=== PATIENT | male | born 1965 | race Caucasian/White ===

== ENCOUNTER 2021-07-21 19:42 | Inpatient (IN) | payer MEDICARE, OTHER ==
[2021-07-21] MEDS ORDERED: SODIUM CHLORIDE 0.9% 1,000 ML IV STA (20:30)
[2021-07-21] MEDS ORDERED: LORazepam 2 MG/ML INJ IV STA (20:31)
--- NOTE | 2021-07-21 20:38 | ED ---
General Adult HPI - General Chief complaint: Extremity Injury, Lower Stated complaint: Left ankle injury Time Seen by Provider: 07/21/21 20:12 Source: patient, EMS, RN notes reviewed Mode of arrival: EMS - History of Present Illness Initial comments: This is a 55-year-old male who was transferred from [facility] after having multiple falls and sustaining a nondisplaced distal fibular fracture on the left. Patient lives in a jail and according to the car etaker patient fell from standing patient had a negative CT of the brain and head at [facility]. Patient also had multiple other clinical x-rays which were negative. Patient was positive for COVID-19 as well as a urinary tract infection. Patient is able to give limited history due to altered mental status. However he denies any chest pain or shortness of breath. His only complaint is pain in the left lower leg area near the fracture. He denies any abdominal pain. No vomiting. No urination. No head or neck pain. No change in vision or hearing. Review of systems are otherwise negative after complete review of all systems. - Related Data Home Medications Medication Instructions Recorded Confirmed Atorvastatin [Lipitor] 20 mg PO HS 07/21/21 07/21/21 Benztropine Mesylate 1 mg PO HS 07/21/21 07/21/21 Divalproex ER [Depakote ER] 1,500 mg PO HS 07/21/21 07/21/21 Divalproex ER [Depakote ER] 250 mg PO HS 07/21/21 07/21/21 LORazepam [Ativan] 1 mg PO TID 07/21/21 07/21/21 OLANZapine [ZyPREXA] 20 mg PO HS 07/21/21 07/21/21 haloperidoL [Haldol] 5 mg PO DAILY 07/21/21 07/21/21 haloperidoL [Haldol] 10 mg PO HS 07/21/21 07/21/21 lamoTRIgine [LaMICtal] 100 mg PO HS 07/21/21 07/21/21 lamoTRIgine [LaMICtal] 200 mg PO DAILY 07/21/21 07/21/21 Allergies Allergy/AdvReac Type Severity Reaction Status Date / Time No Known Allergies Allergy Verified 07/21/21 20:21 Review of Systems ROS Statement: Those systems with pertinent positive or pertinent negative responses have been documented in the HPI. ROS Other: All systems not noted in ROS Statement are negative. General Exam - General Exam Comments Initial Comments: 55-year-old male in mild distress. Patient does not appear to be ill or toxic. Able to provide a limited history. Alert and oriented 2, appears to be disoriented a bit to time and situation. General appearance: alert, in no apparent distress Head exam: Present: atraumatic, normocephalic, normal inspection Eye exam: Present: normal appearance, PERRL, EOMI. Absent: scleral icterus, conjunctival injection, periorbital swelling ENT exam: Present: normal exam, normal oropharynx, mucous membranes moist, TM's normal bilaterally, normal external ear exam Neck exam: Present: normal inspection, full ROM. Absent: tenderness, meningismus, lymphadenopathy Respiratory exam: Present: normal lung sounds bilaterally. Absent: respiratory distress, wheezes, rales, rhonchi, stridor Cardiovascular Exam: Present: regular rate, normal rhythm, normal heart sounds. Absent: systolic murmur, diastolic murmur, rubs, gallop, clicks GI/Abdominal exam: Present: soft, normal bowel sounds. Absent: distended, tenderness, guarding, rebound, rigid Extremities exam: Present: full ROM, normal capillary refill, other (Splint in place, left leg, short leg OCL neurovascular status intact. Capillary refill less than 2 seconds.). Absent: tenderness, pedal edema, joint swelling, calf tenderness Back exam: Present: normal inspection, full ROM. Absent: tenderness Neurological exam: Present: alert, CN II-XII intact, other (Patient does not appear to have any focal neurologic deficits. Alert and oriented 2) Psychiatric exam: Present: normal affect, normal mood Skin exam: Present: warm, dry, intact, normal color. Absent: rash Course Vital Signs 07/21/21 07/21/21 20:12 22:07 Temperature 98.1 F Pulse Rate 80 104 H Respiratory 16 18 Rate Blood Pressure 147/97 O2 Sat by Pulse 95 96 Oximetry EKG Findings - EKG Comments: EKG Findings:: EKG done at 2217 and read by the ED attending physician reveals sinus tachycardia with a rate of 104. Nonspecific ST T wave changes. No comparison study. No evidence of ST elevation. Left axis deviation. Normal intervals. No comparison study. Medical Decision Making - Medical Decision Making Patient presents from [facility], COVID-19 positive, multiple falls, change in mental status, negative CT of the head and neck. Fracture of the distal left fibula. Splint in place. The case was discussed in detail with ED attending physician. Presentation, findings, treatment plan discussed in detail. Patient to be admitted for rehabilitation placement. Attestation, case discussed in detail with the ER physician as well as the admitting physician, Dr. Pierson. Consultations for psychiatry and orthopedics will be made. Patient admitted to telemetry Supervising physician is Dr. Ward. - Lab Data Result diagrams: 07/21/21 20:46 07/21/21 20:46 Lab Results 07/21/21 07/21/21 07/21/21 Range/Units 20:46 20:46 20:46 WBC 6.8 (3.8-10.6) k/uL RBC 5.10 (4.30-5.90) m/uL Hgb 11.0 L (13.0-17.5) gm/dL Hct 34.8 L (39.0-53.0) % MCV 68.2 L (80.0-100.0) fL MCH 21.5 L (25.0-35.0) pg MCHC 31.5 (31.0-37.0) g/dL RDW 16.5 H (11.5-15.5) % Plt Count 308 (150-450) k/uL MPV 6.8 Neutrophils % 70 % Lymphocytes % 15 % Monocytes % 13 % Eosinophils % 1 % Basophils % 0 % Neutrophils # 4.7 (1.3-7.7) k/uL Lymphocytes # 1.0 (1.0-4.8) k/uL Monocytes # 0.9 (0-1.0) k/uL Eosinophils # 0.1 (0-0.7) k/uL Basophils # 0.0 (0-0.2) k/uL Hypochromasia Slight Poikilocytosis Slight Anisocytosis Slight Microcytosis Marked Sodium 139 (137-145) mmol/L Potassium 4.4 (3.5-5.1) mmol/L Chloride 109 H (98-107) mmol/L Carbon Dioxide 23 (22-30) mmol/L Anion Gap 7 mmol/L BUN 12 (9-20) mg/dL Creatinine 2.22 H (0.66-1.25) mg/dL Est GFR (CKD-EPI)AfAm 37 (>60 ml/min/1.73 sqM) Est GFR (CKD-EPI)NonAf 32 (>60 ml/min/1.73 sqM) Glucose 199 H (74-99) mg/dL Calcium 9.4 (8.4-10.2) mg/dL Phosphorus 3.6 (2.5-4.5) mg/dL Magnesium 2.1 (1.6-2.3) mg/dL Total Bilirubin 0.8 (0.2-1.3) mg/dL AST 42 (17-59) U/L ALT 14 (4-49) U/L Alkaline Phosphatase 100 (38-126) U/L Troponin I <0.012 (0.000-0.034) ng/mL Total Protein 7.0 (6.3-8.2) g/dL Albumin 3.8 (3.5-5.0) g/dL Disposition Clinical Impression: COVID-19, Altered mental status, Closed fracture of left distal fibula, Urinary tract infection, Chronic renal failure Disposition: ADMITTED IP TO THIS HOSP
[2021-07-21 20:57] LABS: Anisocytosis Slight; Basophils % (A) 0 %; Eosinophils # (A) 0.1 k/uL (0-0.7); Eosinophils % (A) 1 %; HCT 34.8 % (39.0-53.0); Hypochromasia Slight; Lymphocytes % (A) 15 %; MCH 21.5 pg (25.0-35.0); MCHC 31.5 g/dL (31.0-37.0); MCV 68.2 fL (80.0-100.0); Mean Platelet Volume 6.8; Microcytosis Marked; Monocytes # (A) 0.9 k/uL (0-1.0); Monocytes % (A) 13 %; Neutrophils # (A) 4.7 k/uL (1.3-7.7); Neutrophils % (A) 70 %; Platelet Count 308 k/uL (150-450); Poikilocytosis Slight; RDW 16.5 % (11.5-15.5); WBC 6.8 k/uL (3.8-10.6)
[2021-07-21 21:13] LABS: Albumin 3.8 g/dL (3.5-5.0); Calcium 9.4 mg/dL (8.4-10.2); Magnesium 2.1 mg/dL (1.6-2.3); Phosphorus 3.6 mg/dL (2.5-4.5); Potassium 4.4 mmol/L (3.5-5.1); Total Bilirubin 0.8 mg/dL (0.2-1.3)
[2021-07-21] MEDS ORDERED: HALOPERIDOL LACTATE 5 MG/ML 1 ML VIAL IM STA (21:18)
[2021-07-21] MEDS ORDERED: NALOXONE 0.4 MG/ML 1 ML VIAL IV PRN (21:45)
[2021-07-21] MEDS ORDERED: ONDANSETRON 4 MG/2 ML VIAL IVP PRN (21:45)
[2021-07-21] MEDS: SODIUM CHLORIDE 0.9% 1,000 ML IV SCH (22:31)
[2021-07-21] MEDS: ENOXAPARIN 40 MG/0.4 ML SYRINGE SQ SCH (22:31)
[2021-07-22 00:14] LABS: Appearance,Urine Clear (Clear); Bacteria,Urine Rare /hpf; Bilirubin,Urine Negative (Negative); Blood,Urine Trace (Negative); Color,Urine Light Yellow; Glucose,Urine (UA) Negative (Negative); Ketones,Urine Negative (Negative); Leukocyte Esterase,Urine Moderate (Negative); Nitrite,Urine Negative (Negative); PH, Urine 6.5 (5.0-8.0); Protein,Urine Negative (Negative); RBC,Urine 2 /hpf (0-5); Specific Gravity,Urine 1.003 (1.001-1.035); Urobilinogen,Urine <2.0 mg/dL (<2.0); WBC,Urine 7 /hpf (0-5)
[2021-07-22] MEDS: LORazepam 2 MG/ML INJ IV PRN (03:21)
[2021-07-22] MEDS: MORPHINE SULFATE 4 MG/ML SYRINGE IV PRN ×2 (06:07→15:49)
[2021-07-22 07:27] LABS: Basophils % (A) 0 %; Eosinophils % (A) 0 %; HCT 34.4 % (39.0-53.0); HGB 10.7 gm/dL (13.0-17.5); Hypochromasia Moderate; Lymphocytes # (A) 1.1 k/uL (1.0-4.8); Lymphocytes % (A) 18 %; MCH 21.8 pg (25.0-35.0); MCV 70.1 fL (80.0-100.0); Mean Platelet Volume 7.3; Microcytosis Moderate; Monocytes # (A) 0.9 k/uL (0-1.0); Monocytes % (A) 16 %; Neutrophils # (A) 3.8 k/uL (1.3-7.7); Neutrophils % (A) 64 %; Platelet Count 239 k/uL (150-450); RBC 4.91 m/uL (4.30-5.90); WBC 5.9 k/uL (3.8-10.6)
[2021-07-22 07:44] LABS: Albumin 3.5 g/dL (3.5-5.0); Calcium 9.4 mg/dL (8.4-10.2); Magnesium 2.2 mg/dL (1.6-2.3); Phosphorus 3.7 mg/dL (2.5-4.5); Potassium 4.4 mmol/L (3.5-5.1); Total Bilirubin 0.7 mg/dL (0.2-1.3); Total Protein 6.5 g/dL (6.3-8.2)
[2021-07-22] MEDS: PANTOPRAZOLE 40 MG/10 ML VIAL IV SCH (08:30)
[2021-07-22] MEDS: ENOXAPARIN 40 MG/0.4 ML SYRINGE SQ SCH (08:30)
--- NOTE | 2021-07-22 08:35 | P.CNOR ---
History of Present Illness - [facility] Consult date: 07/22/21 Consult reason: fracture (Left distal fibula fracture) History of present illness: The patient is a 55 y/o male who present to the ER at [facility] yesterday from [facility]. He sustained multiple falls in his fci and was found to have a possible left fibula fracture. He was placed in a s plint. The patient is confused and unable to tell us any history at this time. Today, the patient is sleeping upon my exam. No complaints of left ankle pain at this time. He has not been out of bed yet. The patient was positive for COVID in [place] according to the ER. COVID PCR upon admission was negative. Review of Systems ROS unobtainable: due to mental status Past Medical History Past Medical History: Unable to Obtain Additional Past Medical History / Comment(s): Guardian states she is unable to give me his medical history at this time. History of Any Multi-Drug Resistant Organisms: None Reported Past Surgical History: Unable to Obtain Additional Past Surgical History / Comment(s): Guardian states she is unable to give me his medical history at this time. Past Anesthesia/Blood Transfusion Reactions: No Reported Reaction Additional Psychological History / Comment(s): Pt lives alone in an apartment and relies on a caregiver. He is legally incapacitated according to his guardian. Smoking Status: Current every day smoker Past Drug Use History: None Reported Additional Drug Use History / Comment(s): Unable to obtain past drug use history. Medications and Allergies Home Medications Medication Instructions Recorded Confirmed Type Atorvastatin [Lipitor] 20 mg PO HS 07/21/21 07/21/21 History Benztropine Mesylate 1 mg PO HS 07/21/21 07/21/21 History Divalproex ER [Depakote ER] 1,500 mg PO HS 07/21/21 07/21/21 History Divalproex ER [Depakote ER] 250 mg PO HS 07/21/21 07/21/21 History LORazepam [Ativan] 1 mg PO TID 07/21/21 07/21/21 History OLANZapine [ZyPREXA] 20 mg PO HS 07/21/21 07/21/21 History haloperidoL [Haldol] 5 mg PO DAILY 07/21/21 07/21/21 History haloperidoL [Haldol] 10 mg PO HS 07/21/21 07/21/21 History lamoTRIgine [LaMICtal] 100 mg PO HS 07/21/21 07/21/21 History lamoTRIgine [LaMICtal] 200 mg PO DAILY 07/21/21 07/21/21 History Allergies Allergy/AdvReac Type Severity Reaction Status Date / Time No Known Allergies Allergy Verified 07/21/21 20:21 Physical Examination The patient is a 55 y/o male in no acute distress. He is very sleepy at this time and is able to arouse but falls back to sleep easily. Exam of the left ankle reveals a splint that was removed. There is mild to moderate swelling to the ankle. No open wounds are present. Upon palpation to the lateral ankle, the patient did grimace when the distal fibula was palpated. When the area was palpated again, the patient did not react. No pain over the lateral ligaments. No pain to the medial aspect of the ankle. He is unable to cooperate to test active range of motion. No pain on passive ROM of the ankle. Circulatory status is intact, pedal pulse 2+. Results - Labs Labs: Abnormal Lab Results - Last 24 Hours (Table) 07/21/21 07/21/21 07/21/21 Range/Units 20:46 20:46 23:53 Hgb 11.0 L (13.0-17.5) gm/dL Hct 34.8 L (39.0-53.0) % MCV 68.2 L (80.0-100.0) fL MCH 21.5 L (25.0-35.0) pg RDW 16.5 H (11.5-15.5) % Chloride 109 H (98-107) mmol/L Creatinine 2.22 H (0.66-1.25) mg/dL Glucose 199 H (74-99) mg/dL Urine Blood Trace H (Negative) Ur Leukocyte Esterase Moderate H (Negative) Urine WBC 7 H (0-5) /hpf Urine Bacteria Rare H (None) /hpf 07/22/21 07/22/21 Range/Units 07:02 07:02 Hgb 10.7 L (13.0-17.5) gm/dL Hct 34.4 L (39.0-53.0) % MCV 70.1 L (80.0-100.0) fL MCH 21.8 L (25.0-35.0) pg RDW 16.0 H (11.5-15.5) % Chloride 110 H (98-107) mmol/L Creatinine 2.40 H (0.66-1.25) mg/dL Glucose 149 H (74-99) mg/dL Urine Blood (Negative) Ur Leukocyte Esterase (Negative) Urine WBC (0-5) /hpf Urine Bacteria (None) /hpf H & H 07/21/21 07/22/21 Range/Units 20:46 07:02 Hgb 11.0 L 10.7 L (13.0-17.5) gm/dL Hct 34.8 L 34.4 L (39.0-53.0) % Result Diagrams: 07/22/21 07:02 07/22/21 07:02 - Diagnostic results Ankle/Foot x-ray: image reviewed (X-rays of the left ankle obtained today reveal no acute fractures seen. Ankle mortise is intact.) Assessment and Plan (1) Altered mental status Current Visit: Yes Status: Acute Code(s): R41.82 - ALTERED MENTAL STATUS, UNSPECIFIED SNOMED Code(s): 193779821 (2) Closed fracture of left distal fibula Current Visit: Yes Status: Acute Code(s): S82.832A - OTH FRACTURE OF UPPER AND LOWER END OF LEFT FIBULA, INIT SNOMED Code(s): 208848117 Plan: The clinical and x-ray findings were discussed with Dr. Mclean and nursing staff. We will obtain a CAM boot today. He may remove the boot for bathing only at this time. Weightbearing as tolerated with boot on. Elevate and ice ankle. The patient may follow up with either us or an orthopedic physician closer to home. We will sign off at this time.
--- NOTE | 2021-07-22 09:15 | XR ---
EXAMINATION TYPE: XR ankle limited LT DATE OF EXAM: 07/22/2021 COMPARISON: None available INDICATION: Left fibular fracture TECHNIQUE: 2 of the left ankle FINDINGS: The left ankle is seen in a fiber glass cast obscuring fine bony details. No definite acute fracture line identified. Inferior calcaneal spur. Grossly unremarkable ankle mortise with a smooth talar dome . IMPRESSION: No definite acute fracture line identified by the provided images.
--- NOTE | 2021-07-22 11:37 | XR ---
EXAMINATION TYPE: XR chest 1V portable DATE OF EXAM: 07/22/2021 COMPARISON: None available HISTORY: SOB TECHNIQUE: Single frontal view of the chest is obtained. FINDINGS: Congested bilateral pulmonary vasculature with prominent interstitial lung markings and scattered are as of increased lung density/pulmonary infiltration, most evident in the midlung zones and more on th e right side. The overall picture could be related to pulmonary edema. Associated pulmonary infection cannot be exc luded. Increased cardiac transverse diameter, please correlate with echocardiographic results. Small left-sided pleural effusion. IMPRESSION: Findings are suggestive of acute pulmonary edema. Associated infection cannot be excluded, please cor relate clinically.
[2021-07-22] MEDS ORDERED: IPRATROPIUM-ALBUTEROL 3 ML NEB INHALATION PRN (12:20)
[2021-07-22] MEDS: IPRATROPIUM-ALBUTEROL 3 ML NEB INHALATION SCH ×2 (13:18→19:57)
--- NOTE | 2021-07-22 13:34 | HP ---
HISTORY AND PHYSICAL DATE OF SERVICE: 07/22/2021 CHIEF COMPLAINT: Left ankle injury. HISTORY OF PRESENT ILLNESS: This 55-year-old gentleman with a past medical history of hyperlipidemia and apparent psychiatric problems, living in an assisted-living facility, had a fall and suffered a left fibular fracture. The patient also was found to have UTI. Patient had some change in mental status. Patient was sent to [facility] for further evaluation. COVID is positive. The patient is unable to give a coherent history. Most of the history is taken from my discussion with staff and review of the chart. The patient has some sleep apnea and noisy breathing. I ordered a chest x-ray done today, which was reviewed. Orthopedic Surgery is following the patient closely. Chest x-ray showed some evidence of increased bronchovascular markings and some fluid overload. PAST MEDICAL HISTORY: Reviewed. Psychiatric problems. MEDICATIONS: Medications are also reviewed and include Haldol, Depakote Lipitor. Doses are reviewed. ALLERGIES: NONE. Family history, social history, review of systems could not be taken because of change in mental status. PHYSICAL EXAMINATION: Pulse is 72, blood pressure 120/70, respirations 17. HEENT: Conjunctivae normal. Oral mucosa moist. NECK: No jugular venous distention. No carotid bruit. CARDIOVASCULAR: S1, S2 muffled. A few scattered rhonchi and crackles. ABDOMEN: Soft, obese. LEGS: Status post left fibular fracture. Nervous system could not be examined completely. Generally weak. SKIN: No ulcer, rash, bleeding. JOINTS: No active deforming arthropathy. LABS: WBC 5.2, hemoglobin 10.7. ASSESSMENT: 1. Fall and left fibular fracture. 2. Acute urinary tract infection with sepsis. 3. COVID-19 positive, elsewhere negative currently. 4. Congestive heart failure. 5. Anemia. RECOMMENDATIONS AND DISCUSSION: In this 55-year-old gentleman who presented with multiple complex medical issues, at this time I recommend to continue current medications. Will resume the home medications and hold the psychiatric medications. The patient is drowsy. Otherwise, DVT prophylaxis. I would also recommend a 2D echo and full cardiac workup as well. Overall prognosis is extremely guarded because of the multiple complex medical issues. Further recommendations to follow. MMODL / IJN: [id number] /
[2021-07-22] MEDS ORDERED: LORazepam 1 MG TAB PO PRN (14:02)
--- NOTE | 2021-07-22 14:03 | P.CN ---
Psychiatric Consult - . Consult date: 07/22/21 Consult:: 07/22/21 14:02 IDENTIFYING DATA: This patient is a single, unemployed, 55-year-old male with a significant history of psychiatric illness presented to the hospital for multiple falls and altered mental status. HISTORY OF PRESENT ILLNESS: The patient presented to the hospital from [facility] after having multiple falls and sustaining a nondisplaced distal fibular fraccture on the left. Psychiatry has been consulted for evaluation and management of altered mental status. At this time, the patient is unable to provide any significant history to this provider. The patient is quite somnolent and is unable to answer any questions appropriately. He is nonspontaneous and very minimal in his repsonses. This provider left a HIPAA compliacnt voicemail with his guardian for further history. PAST PSYCHIATRIC HISTORY: Patient is currently on a regimen of multiple psychiatric medications including Haldol, Zyprexa, Lamictal, Depakote, and Ativan. PAST MEDICAL HISTORY: Past Medical History: Unable to Obtain Additional Past Medical History / Comment(s): Guardian states she is unable to give me his medical history at this time. History of Any Multi-Drug Resistant Organisms: None Reported Past Surgical History: Unable to Obtain Additional Past Surgical History / Comment(s): Guardian states she is unable to give me his medical history at this time. Past Anesthesia/Blood Transfusion Reactions: No Reported Reaction Additional Psychological History / Comment(s): Pt lives alone in an apartment and relies on a caregiver. He is legally incapacitated according to his guardian. Smoking Status: Current every day smoker Past Drug Use History: None Reported Additional Drug Use History / Comment(s): Unable to obtain past drug use his tory. ALLERGIES: NO KNOWN DRUG ALLERGIES CHEMICAL DEPENDENCY HISTORY: Unable to assess FAMILY PSYCHIATRIC/SUBSTANCE USE HISTORY: Unable to assess SOCIAL HISTORY: Patient has a public guardian. Patient lives in a intermediate. Unable to determine any other patient history. MENTAL STATUS EXAM: General Appearance: Patient appears to be older than stated age, is morbidly obese, with poor hygiene and grooming, and is appearing quite somnolent. Behavior: Patient is currently lying down in bed without any agitated behavior. Somnolent and difficult to arouse. Speech: Nonspontaneous, monotone, 1 word responses if any. Mood/Affect: Mood cannot be assessed. Affect is somnolent. Suicidality/Homicidality: Unable to assess Perceptions: Unable to assess Though content/process: Unable to assess Memory and concentration: Unable to assess Judgment and insight: Unable to assess IMPRESSIONS: Altered mental status, etiology unknown - likely multifactorial including polyp harmacy, urinary tract infection, exacerbation of chronic mental illness PLAN: -Continue your medical management -Patient DOES NOT have decision making capacity at this time and is unable to reason through and communicate/appreciate the risks, benefits and alternatives to treatment. -Delirium precautions recommended with patient including - avoiding use of narcotics and [employer] sedatives, limit anticholinergic medications when possible, frequent re-orientation, minimize use of restraints, open window shades during the day and close them at night -Would recommend the following medication changes/additions: We will discontinue the patient's morning Haldol due to concerns for oversedation. Continue Depakote 1750 mg by mouth at bedtime Continue Haldol 10 mg by mouth at bedtime Continue Lamictal 200 mg by mouth every morning and 100 mg by mouth daily at bedtime Continue Zyprexa 20 mg by mouth at bedtime We will change the patient's scheduled Ativan to 1 mg by mouth 3 times a day when necessary for agitation/anxiety -Will order TSH, B12, folate. Agree with Depakote and Lamictal level. -Will continue to follow along. This provider left a HIPAA compliant voicemail with his guardian's office to obtain more information. 07/22/21 14:03
[2021-07-22] MEDS: FUROSEMIDE 10 MG/ML 4 ML VIAL IV SCH ×2 (14:20→22:13)
[2021-07-22] MEDS ORDERED: LORazepam 1 MG TAB PO SCH (16:00)
--- NOTE | 2021-07-22 16:35 | XR ---
RESULT: HISTORY: fracture TECHNIQUE: 2 views of the left tibia and fibula were obtained. COMPARISON: Same-day. FINDINGS: There is demonstration of minimally displaced lateral malleolus fracture. No evidence of proximal tib ia fibular fractures. Interval removal of previous overlying splint. IMPRESSION: Lateral malleolus fracture.
[2021-07-22] MEDS: ATORVASTATIN 20 MG TAB PO SCH (20:59)
[2021-07-22] MEDS: DIVALPROEX ER 500 MG TAB.ER.24H PO SCH (20:59)
[2021-07-22] MEDS: BENZTROPINE MESYLATE 1 MG TAB PO SCH (21:00)
[2021-07-22] MEDS: DIVALPROEX ER 250 MG TAB.ER.24H PO SCH (21:00)
[2021-07-22] MEDS ORDERED: lamoTRIgine 100 MG TAB PO SCH (21:00)
[2021-07-22] MEDS: haloperidoL 5 MG TAB PO SCH (21:00)
[2021-07-22] MEDS: OLANZapine 10 MG TAB PO SCH (21:00)
[2021-07-22] MEDS: SODIUM CHLORIDE 0.9% 1,000 ML IV SCH (21:06)
[2021-07-23] MEDS: MORPHINE SULFATE 4 MG/ML SYRINGE IV PRN (03:06)
--- NOTE | 2021-07-23 07:03 | ECHOF ---
Referral Reason:chf MEASUREMENTS -------- HEIGHT: 172.7 cm WEIGHT: 122.5 kg BP: 150/88 RVIDd: 2.9 cm (< 3.3) IVSd: 1.5 cm (0.6 - 1.1) LVIDd: 4.3 cm (3.9 - 5.3) LVPWd: 1.4 cm (0.6 - 1.1) IVSs: 2.1 cm LVIDs: 3.0 cm LVPWs: 1.7 cm LA Diam: 3.5 cm (2.7 - 3.8) Ao Diam: 4.1 cm (2.0 - 3.7) AV Cusp: 2.7 cm (1.5 - 2.6) MV EXCURSION: 15.618 mm (> 18.000) MV EF SLOPE: 65 mm/s (70 - 150) EPSS: 1.3 cm MV E Timothy: 0.56 m/s MV DecT: 151 ms MV A Timothy: 0.91 m/s MV E/A Ratio: 0.62 FINDINGS -------- Sinus rhythm. This was a technically difficult study with suboptimal views. The left ventricular size is normal. There is moderate concentric left ventricular hypertrophy. O verall left ventricular systolic function is normal with, an EF between 55 - 60 %. The right ventricle is normal in size. The left atrium is normal in size. The right atrial size is normal. The aortic valve is trileaflet, and appears structurally normal. No aortic stenosis or regurgitation. The mitral valve is normal. No mitral regurgitation. The tricuspid valve appears structurally normal. The pulmonic valve was not well visualized. The aortic root is mildy dilated. IVC Not well visulized. There is no pericardial effusion. CONCLUSIONS -------- 1. There is moderate concentric left ventricular hypertrophy. 2. Overall left ventricular systolic function is normal with, an EF between 55 - 60 %. 3. The aortic valve is trileaflet, and appears structurally normal. No aortic stenosis or regurgitati on. 4. The mitral valve is normal. 5. The aortic root is mildy dilated. CONTRACTS OFFICER: Karyn Goss [facility]
[2021-07-23] MEDS: IPRATROPIUM-ALBUTEROL 3 ML NEB INHALATION SCH ×3 (08:44→20:30)
[2021-07-23] MEDS ORDERED: lamoTRIgine 100 MG TAB PO SCH (09:00)
[2021-07-23] MEDS ORDERED: haloperidoL 5 MG TAB PO SCH (09:00)
[2021-07-23] MEDS: PANTOPRAZOLE 40 MG/10 ML VIAL IV SCH (09:03)
[2021-07-23] MEDS: FUROSEMIDE 10 MG/ML 4 ML VIAL IV SCH ×2 (09:03→20:44)
[2021-07-23 09:16] LABS: HGB 11.6 g/dL (13.0-17.0); MCH 21.1 pg (27.0-32.0); MCHC 31.4 g/dL (32.0-37.0); MCV 67.4 fL (80.0-97.0); Mean Platelet Volume 9.8 fL (9.5-12.2); NRBC Per 100 WBC 0.2 /100 WBCS (0.0-0.0); Platelet Count 281 X 10*3/uL (140-440); RBC 5.49 X 10*6/uL (4.40-5.60); RDW 16.8 % (11.5-14.5); WBC 9.28 X 10*3/uL (4.50-10.00)
[2021-07-23 09:18] LABS: African American GFR (CKD) 30.6 (60.0-200.0); Albumin 4.1 g/dL (3.8-4.9); Albumin/Globulin Ratio 1.41 (1.60-3.17); Anion Gap 15.8 mmol/L (10.00-18.00); BUN/Creat Ratio 6.58 Ratio (12.00-20.00); Blood Urea Nitrogen 17.1 mg/dL (9.0-27.0); Calcium 9.7 mg/dL (8.7-10.3); Carbon Dioxide 26.2 mmol/L (20.0-27.5); Globulin 2.9 g/dL (1.6-3.3); Non-African American GFR(CKD) 26.4 (60.0-200.0); Total Bilirubin 0.6 mg/dL (0.30-1.20)
[2021-07-23] MEDS: ENOXAPARIN 40 MG/0.4 ML SYRINGE SQ SCH (09:38)
[2021-07-23 10:43] LABS: Basophils # (A) 0.03 X 10*3/uL (0.00-0.10); Basophils % (A) 0.3 %; Eosinophils # (A) 0.01 X 10*3/uL (0.04-0.35); Eosinophils % (A) 0.1 %; Immature Grans, Automated 0.8 %; Lymphocytes % (A) 15.1 %; Monocytes # (A) 1.95 X 10*3/uL (0.20-1.00); Neutrophils # (A) 5.82 X 10*3/uL (1.80-7.70); Neutrophils % (A) 62.7 %; Target Cells 2+
[2021-07-23 12:35] LABS: Coronavirus SARS CoV-2 Not Detected (Not Detected)
--- NOTE | 2021-07-23 13:29 | P.PN ---
Progress Note - Text Progress Note Date: 07/23/21 Interval History: Patient was seen resting in bed and was directable and agreeable to speak with hand sign writer in his room. Collateral information was provided by Yuniel Mcnamara who is the patient's caregiver. The patient's caregiver reports that at baseline, the patient is alert and oriented in all spheres. He does have a significant history of bipolar disorder however has been well controlled with his medications. Currently, the patient is alert however is not oriented to place or time. He is currently not reporting any suicidal or homicidal ideation, intention, and/or plan. He is not reporting any auditory or visual hallucinations at this time. He denies any paranoia or other delusions. The patient appears to be pleasantly confused at this time however is calm and cooperative and follows directions. He has been adherent with his medications and is not endorsing any significant side effect this time. Mental Status Exam: General Appearance: Patient appears to be stated age is alert, directable, and cooperative. Behavior: Patient is calmly seated without any agitated behavior. Speech: Patient's speech is fluent and nonpressured. Mood/Affect: Mood is "a little tired." Affect is congruent and a little somnolent Suicidality/Homicidality: Patient denies having any suicidal or homicidal ideation intent or plan. Perceptions: Patient denies any visual hallucinations and denies any auditory hallucinations Though content/process: There is no evidence of any delusional thought content and thought process is linear and goal-directed. Memory and concentration: Patient is alert and oriented to self only. Judgment and insight: Improving mildly Vital Signs Temp 99.1 F 07/23/21 08:00 Pulse 100 07/23/21 08:55 Resp 18 07/23/21 08:55 BP 164/107 07/23/21 08:00 Pulse Ox 94 L 07/23/21 08:45 Intake & Output 07/22/21 07/23/21 07/23/21 18:59 06:59 18:59 Output Total 4300 3400 Balance -4300 -3400 Output: Urine 4300 3400 Uretheral (Mccracken) 1800 Other: Voiding Method Indwelling Catheter Indwelling Catheter Indwelling Catheter Laboratory Results - Last 24 Hours 07/22/21 07/22/21 07/22/21 12:30 12:30 13:01 WBC RBC Hgb Hct MCV MCH MCHC RDW Plt Count Plt Count Comment MPV Immature Gran % (Auto) Absolute Nucleated RBC Neutrophils % Lymphocytes % Monocytes % Eosinophils % Basophils % Immature Gran # Neutrophils # Lymphocytes # Monocytes # Eosinophils # Basophils # NRBC/100 WBC Diff Target Cells Sodium Potassium Chloride Carbon Dioxide Anion Gap BUN Creatinine Est GFR (CKD-EPI)AfAm Est GFR (CKD-EPI)NonAf BUN/Creatinine Ratio Glucose Calcium Total Bilirubin AST ALT Alkaline Phosphatase Total Protein Albumin Globulin Albumin/Globulin Ratio Vitamin B12 Folate TSH Valproic Acid 88.3 Lamotrigine 15.1 H Coronavirus (PCR) Not Detected 07/22/21 07/23/21 07/23/21 16:30 05:22 05:22 WBC 9.28 RBC 5.49 Hgb 11.6 L Hct 37.0 L MCV 67.4 L MCH 21.1 L MCHC 31.4 L RDW 16.8 H Plt Count 281 Plt Count Comment Adequate MPV 9.8 Immature Gran % (Auto) 0.8 Absolute Nucleated RBC 0.02 H Neutrophils % 62.7 Lymphocytes % 15.1 Monocytes % 21.0 Eosinophils % 0.1 Basophils % 0.3 Immature Gran # 0.07 H Neutrophils # 5.82 Lymphocytes # 1.40 Monocytes # 1.95 H Eosinophils # 0.01 L Basophils # 0.03 NRBC/100 WBC Diff 0.2 H Target Cells 2+ Sodium 144 Potassium 4.0 Chloride 102 Carbon Dioxide 26.2 Anion Gap 15.80 BUN 17.1 Creatinine 2.6 H Est GFR (CKD-EPI)AfAm 30.6 L Est GFR (CKD-EPI)NonAf 26.4 L BUN/Creatinine Ratio 6.58 L Glucose 175 H Calcium 9.7 Total Bilirubin 0.60 AST 26 ALT 11 Alkaline Phosphatase 105 Total Protein 7.0 Albumin 4.1 Globulin 2.9 Albumin/Globulin Ratio 1.41 L Vitamin B12 1007.0 H Folate 5.90 TSH 0.749 Valproic Acid Lamotrigine Coronavirus (PCR) Assessment Altered mental status; likely multifactorial including polypharmacy, urinary tract infection, exacerbation of chronic mental illness Plan: -Continue your medical management -Patient DOES NOT have decision making capacity at this time and is unable to reason through and communicate/appreciate the risks, benefits and alternatives to treatment. -Delirium precautions recommended with patient including - avoiding use of narcotics and CRYPTOLOGIC TECHNICIAN sedatives, limit anticholinergic medications when possible, frequent re-orientation, minimize use of restraints, open window shades during the day and close them at night -Would recommend the following medication changes/additions: Continue Depakote 1750 mg by mouth at bedtime Continue Haldol 10 mg by mouth at bedtime Due to over sedation, we will decrease Lamictal to 100 mg by mouth twice a day. Continue Zyprexa 20 mg by mouth at bedtime We will change the patient's scheduled Ativan to 1 mg by mouth 3 times a day when necessary for agitation/anxiety -Labs reviewed, Lamictal level slightly elevated. -Will continue to follow along.
--- NOTE | 2021-07-23 14:13 | P.PN ---
Subjective Progress Note Date: 07/23/21 Patient is a 55-year-old male who was recently admitted with recent fall and left femur fracture and previous hospital also found to have an acute urinary tract infection and some apparent psychiatric issues and is being closely monitored. Orthopedics following as well. Patient underwent further x-rays of the left tibia and fibula showing a demonstration of minimally displaced lateral malleolus fracture with no evidence of proximal tibia fibular fractures. Patient is also found to be Covid positive elsewhere and currently testing negative. Patient continues with confusion today and is also having some pain of the left shoulder with some bruising noted. Will obtain left shoulder x-ray which is currently pending. Psychiatry following and making adjustments to medications and continue to follow. Patient continues on IV ceftriaxone while awaiting for cultures to finalized. 2-D echo was done showing moderate concentric left ventricular hypertrophy with overall LV systolic function being normal with an EF of 55-60% patient denies chest pain, shortness of breath, or palpitations. Patient is afebrile. Review of systems: Constitutional: No reports of fatigue, fever, or chills Cardiovascular: No reports of chest pain or palpitations Respiratory: No reports of shortness of breath or cough GI: no reports of nausea, no reports of of vomiting : No reports of dysuria or retention Neurovascular: reports of generalized weakness, reports left ankle and shoulder pain All medications have been reviewed Active Medications Acetaminophen (Acetaminophen Tab 325 Mg Tab) 650 mg PO Q6HR PRN PRN Reason: Mild Pain or Fever > 100.5 Albuterol/Ipratropium (Ipratropium-Albuterol 3 Ml Neb) 3 ml INHALATION RT-TID [facility] Last Admin: 07/23/21 12:27 Dose: Not Given Documented by: Albuterol/Ipratropium (Ipratropium-Albuterol 3 Ml Neb) 3 ml INHALATION RT-TID PRN PRN Reason: Shortness Of Breath Or Wheezing Atorvastatin Calcium (Atorvastatin 20 Mg Tab) 20 mg PO [facility] Last Admin: 07/22/21 20:59 Dose: 20 mg Documented by: Benztropine Mesylate (Benztropine Mesylate 1 Mg Tab) 1 mg PO [facility] Last Admin: 07/22/21 21:00 Dose: 1 mg Documented by: Divalproex Sodium (Divalproex Er 250 Mg Tab.Er.24h) 250 mg PO [facility] Last Admin: 07/22/21 21:00 Dose: 250 mg Documented by: Divalproex Sodium (Divalproex Er 500 Mg Tab.Er.24h) 1,500 mg PO [facility] Last Admin: 07/22/21 20:59 Dose: 1,500 mg Documented by: Enoxaparin Sodium (Enoxaparin 40 Mg/0.4 Ml Syringe) 40 mg SQ DAILY [facility] Last Admin: 07/23/21 09:38 Dose: 40 mg Documented by: Furosemide (Furosemide 10 Mg/Ml 4 Ml Vial) 40 mg IV Q12HR [facility] Last Admin: 07/23/21 09:03 Dose: 40 mg Documented by: Haloperidol (Haloperidol 5 Mg Tab) 10 mg PO [facility] Last Admin: 07/22/21 21:00 Dose: 10 mg Documented by: Ceftriaxone Sodium 1 gm/ (Sodium Chloride) 50 mls @ 100 mls/hr IVPB Q24HR [facility] Last Admin: 07/23/21 09:38 Dose: 100 mls/hr Documented by: Lamotrigine (Lamotrigine 100 Mg Tab) 100 mg PO BID [facility] Lorazepam (Lorazepam 2 Mg/Ml Inj) 1 mg IV Q6HR PRN PRN Reason: Anxiety Last Admin: 07/22/21 03:21 Dose: 1 mg Documented by: Lorazepam (Lorazepam 1 Mg Tab) 1 mg PO TID PRN PRN Reason: Agitation or Acute Anxiety Morphine Sulfate (Morphine Sulfate 4 Mg/Ml Syringe) 4 mg IV Q4HR PRN PRN Reason: Severe Pain Last Admin: 07/23/21 03:06 Dose: 4 mg Documented by: Naloxone HCl (Naloxone 0.4 Mg/Ml 1 Ml Vial) 0.2 mg IV Q2M PRN PRN Reason: Opioid Reversal Olanzapine (Olanzapine 10 Mg Tab) 20 mg PO [facility] Last Admin: 07/22/21 21:00 Dose: 20 mg Documented by: Ondansetron HCl (Ondansetron 4 Mg/2 Ml Vial) 4 mg IVP Q8HR PRN PRN Reason: Nausea And Vomiting Pantoprazole Sodium (Pantoprazole 40 Mg/10 Ml Vial) 40 mg IV DAILY [facility] Last Admin: 07/23/21 09:03 Dose: 40 mg Documented by: Physical examination: GENERAL: The patient is alert and oriented x1-2, confused, Well developed, well nourished. Morbidly obese HEENT: Pupils are round and equally reacting to light. EOMI. does have scleral icterus. No conjunctival pallor. Normocephalic, atraumatic. No pharyngeal poncho thema. No thyromegaly. CARDIOVASCULAR: S1 and S2 muffled PULMONARY: diminished breath sounds bilaterally with no wheezing or rhonchi noted. ABDOMEN: soft. Nontender on exam. obese. non-distended, normoactive bowel sounds. No palpable organomegaly. MUSCULOSKELETAL: No joint swelling or deformity. Left shoulder bruising noted with pain and also left ankle splint currently EXTREMITIES: No cyanosis, clubbing, or pedal edema. NEUROLOGICAL: Gross neurological examination did not reveal any focal deficits. Diffuse weakness SKIN: No rashes. Multiple levels of bruising noted on the left shoulder Assessment: Fall and possible left fibular fracture, most recent x-ray showing no evidence of proximal tibia fibular fractures Left lateral malleolus fracture is noted on x-ray Acute kidney injury Acute urinary tract infection with sepsis, present on admission COVID-19 positive, elsewhere, negative currently x2 Congestive heart failure Anemia GI prophylaxis DVT prophylaxis Full code Plan: Recommend to continue with current medications and management. Patient being followed by psychiatry along with orthopedics. Will consult nephrology as kidney functions are showing a creatinine of 2.6 today. Patient currently receiving IV Lasix twice daily. Patient was tested for COVID-19 twice and has been negative. Patient also underwent repeat left tibia fibular x-ray showing no fractures although does show a left lateral malleolus fracture. Patient continues with confusion and continues on IV ceftriaxone for possible acute urinary tract infection and will continue for now. Lamictal level mildly elevated and being decreased and patient will continue on Depakote. Patient does have a guardian in the outpatient setting and will discuss further with case management and social work about treatment plan moving forward after discussing with psychiatry. Due to multiple complex medical issues, prognosis is guarded. Further recommendations to follow. The impression and plan of care has been dictated by Leyda Garcia, nurse practitioner as directed. MD Hortencia I have performed a history and examination and MDM of this patient, discussed the same with the dictator, and agree with the dictator's assessment and plan as written ,documented as a scribe. Based on total visit time, I have performed more than 50% of the visit. Any additional findings or plans will be noted. Objective - Vital Signs Vital signs: Vital Signs Temp 99.1 F 07/23/21 08:00 Pulse 100 07/23/21 08:55 Resp 18 07/23/21 08:55 BP 164/107 07/23/21 08:00 Pulse Ox 94 L 07/23/21 08:45 Intake & Output 07/22/21 07/23/21 07/23/21 18:59 06:59 18:59 Output Total 4300 3400 Balance -4300 -3400 Output: Urine 4300 3400 Uretheral (Mccracken) 1800 Other: Voiding Method Indwelling Catheter Indwelling Catheter Indwelling Catheter - Labs CBC & Chem 7: 07/23/21 05:22 07/23/21 05:22 Labs: Abnormal Lab Results - Last 24 Hours (Table) 07/22/21 07/22/21 07/23/21 Range/Units 12:30 16:30 05:22 Hgb 11.6 L (13.0-17.0) g/dL Hct 37.0 L (39.6-50.0) % MCV 67.4 L (80.0-97.0) fL MCH 21.1 L (27.0-32.0) pg MCHC 31.4 L (32.0-37.0) g/dL RDW 16.8 H (11.5-14.5) % Absolute Nucleated RBC 0.02 H (0.00-0.00) X 10*3/uL Immature Gran # 0.07 H (0.00-0.04) X 10*3/uL Monocytes # 1.95 H (0.20-1.00) X 10*3/uL Eosinophils # 0.01 L (0.04-0.35) X 10*3/uL NRBC/100 WBC Diff 0.2 H (0.0-0.0) /100 WBCS Creatinine (0.6-1.5) mg/dL Est GFR (CKD-EPI)AfAm (60.0-200.0) Est GFR (CKD-EPI)NonAf (60.0-200.0) BUN/Creatinine Ratio (12.00-20.00) Ratio Glucose (70-110) mg/dL Albumin/Globulin Ratio (1.60-3.17) g/dL Vitamin B12 1007.0 H (200.0-944.0) pg/mL Lamotrigine 15.1 H (2.0-15.0) ug/mL 07/23/21 Range/Units 05:22 Hgb (13.0-17.0) g/dL Hct (39.6-50.0) % MCV (80.0-97.0) fL MCH (27.0-32.0) pg MCHC (32.0-37.0) g/dL RDW (11.5-14.5) % Absolute Nucleated RBC (0.00-0.00) X 10*3/uL Immature Gran # (0.00-0.04) X 10*3/uL Monocytes # (0.20-1.00) X 10*3/uL Eosinophils # (0.04-0.35) X 10*3/uL NRBC/100 WBC Diff (0.0-0.0) /100 WBCS Creatinine 2.6 H (0.6-1.5) mg/dL Est GFR (CKD-EPI)AfAm 30.6 L (60.0-200.0) Est GFR (CKD-EPI)NonAf 26.4 L (60.0-200.0) BUN/Creatinine Ratio 6.58 L (12.00-20.00) Ratio Glucose 175 H (70-110) mg/dL Albumin/Globulin Ratio 1.41 L (1.60-3.17) g/dL Vitamin B12 (200.0-944.0) pg/mL Lamotrigine (2.0-15.0) ug/mL
[2021-07-23] MEDS: SODIUM CHLORIDE 0.9% 1,000 ML IV SCH (15:39)
--- NOTE | 2021-07-23 16:13 | CDI ---
Documentation Clarification Form Date: 07/23/2021 04:03:43 PM From: Yoana Agudelo CCS, CCDS Admit Date: 07/21/2021 09:52:00 PM Patient Name: Matt Garg Visit Number: [id number] Discharge Date: ATTENTION: The Clinical Documentation Specialists (CDI) and [facility] Coding Staff appreciate your assistance in clarifying documentation. Please respond to the clarification below the line at the bottom and electronically sign. The CDI & [facility] Coding staff will review the response and follow-up if needed. Please note: Queries are made part of the Legal Health Record. If you have any questions, please contact the author of this message via ITS. Dr. Cordell Taveras: Congestive Heart Failure is documented in the 07/22 History & Physical and the 07/23 Attending Physician Progress Note without further specificity. Additional information regarding the Acuity & Type of CHF is requested. History/Risk Factors per the 07/22 H/P: Lives in [place], Hyperlipidemia, Frequent Falls, Psychiatric problems, Sleep apnea Clinical Indicators: Presented to the ED via EMS as a transfer [facility] with a left ankle injury after multiple falls. Patient was COVID positive at [place] & also has UTI, had Altered mental status. Admit with COVID 19, Altered mental status, Closed fracture of the left distal fibula, UTI, Chronic renal failure. 07/21 VS: T 98.1, P 80 - 104, R 16 - 18, BP 147/97, PO 95 RA, BMI: 41.1 07/21 LAB: Hgb 11.0, Hct 34.8, Cl 109, BUN 12, Creatinine 2.22, Glucose 199 07/21 BNP was not done. 07/21 CXR: Increased bronchovascular markings, some fluid overload. 07/22 ECHO: Moderate concentric LVH, Left ventricular systolic function is normal w/EF 55-60%, Aortic valve is trileaflet, No aortic stenosis. Treatment: Telemetry, Neuro Assessment, Mccracken Catheter (07/22), IV Ativan 2 mg x1, IV Ativan 1 mg q6H/prn, IM Haldol 5 mg x1, IV Morphine 4 mg q4H/prn, IV Rocephin 50 mls @ 100 mls/hr q24H, Lovenox 40 mg sq Daily, IV Lasix 40 mg q12H (07/22. In your professional opinion, can you please clarify the Acuity & Type of CHF if known? [ ] Acute Diastolic Heart Failure [ ] Chronic Diastolic Heart Failure [ ] Acute on Chronic Diastolic Heart Failure [ ] Heart Failure is ruled out [ ] Other, please specify: [ ] Unable to determine (Template Last Revised: July 2020) Chronic Diastolic Heart Failure MTDD
--- NOTE | 2021-07-23 18:41 | XR ---
EXAMINATION TYPE: XR ankle limited LT DATE OF EXAM: 07/23/2021 6:17 PM INDICATION: Patient age:Male; 55 years old; Reason for study: Ankle fracture; COMPARISON: Radiograph one day prior. TECHNIQUE: The left ankle is imaged in oblique projection. FINDINGS: Acute fracture through the distal left fibula without displacement. No evidence of radiopaque foreign body. There is soft tissue swelling around the ankle. IMPRESSION: 1. Acute fracture the distal fibula without placement. 2. Subcutaneous swelling around the ankle likely secondary to #1.
--- NOTE | 2021-07-23 18:44 | XR ---
EXAMINATION TYPE: XR humerus LT DATE OF EXAM: 07/23/2021 6:18 PM INDICATION: Patient age:Male; 55 years old; Reason for study: fall; COMPARISON: Same day radiograph and chest radiograph from one day prior. TECHNIQUE: The left humerus was examined in AP, internally rotated and axillary projections. FINDINGS: No evidence of acute osseous pathology, joint dislocation, or soft tissue swelling. The rem aining portions of the visualized chest are unremarkable. IMPRESSION: No convincing evidence for acute osseous pathology.
--- NOTE | 2021-07-23 18:46 | XR ---
EXAMINATION TYPE: XR shoulder complete LT DATE OF EXAM: 07/23/2021 6:17 PM INDICATION: Patient age:Male; 55 years old; Reason for study: fall; COMPARISON: Same day radiographs of the upper extremity and chest radiograph 04/12/2022 TECHNIQUE: The left shoulder was examined in AP, internally rotated and axillary projections. FINDINGS: No evidence of acute osseous pathology, joint dislocation, or soft tissue swelling. The remaining por tions of the visualized chest are unremarkable. IMPRESSION: No acute osseous pathology.
[2021-07-23] MEDS: LORazepam 2 MG/ML INJ IV PRN (19:34)
[2021-07-23] MEDS: haloperidoL 5 MG TAB PO SCH (20:43)
[2021-07-23] MEDS: DIVALPROEX ER 500 MG TAB.ER.24H PO SCH (20:43)
[2021-07-23] MEDS: OLANZapine 10 MG TAB PO SCH (20:43)
[2021-07-23] MEDS: lamoTRIgine 100 MG TAB PO SCH (20:43)
[2021-07-23] MEDS: ATORVASTATIN 20 MG TAB PO SCH (20:44)
[2021-07-23] MEDS: DIVALPROEX ER 250 MG TAB.ER.24H PO SCH (20:44)
[2021-07-23] MEDS: BENZTROPINE MESYLATE 1 MG TAB PO SCH (20:44)
[2021-07-24] MEDS: MORPHINE SULFATE 4 MG/ML SYRINGE IV PRN ×2 (00:43→19:40)
[2021-07-24] MEDS: SODIUM CHLORIDE 0.9% 1,000 ML IV SCH (06:53)
[2021-07-24] MEDS: ENOXAPARIN 40 MG/0.4 ML SYRINGE SQ SCH (07:36)
[2021-07-24] MEDS: PANTOPRAZOLE 40 MG TABLET PO SCH (07:36)
[2021-07-24] MEDS: NICOTINE 21MG/24HR PATCH TRANSDERM SCH (07:36)
[2021-07-24] MEDS: lamoTRIgine 100 MG TAB PO SCH ×2 (07:36→20:42)
[2021-07-24] MEDS: FUROSEMIDE 10 MG/ML 4 ML VIAL IV SCH (08:10)
--- NOTE | 2021-07-24 08:19 | CDI ---
Documentation Clarification Form Date: 07/24/2021 08:07:42 AM From: Yoana Agudelo CCS, CCDS Admit Date: 07/21/2021 09:52:00 PM Patient Name: Matt Garg Visit Number: [id number] Discharge Date: ATTENTION: The Clinical Documentation Specialists (CDI) and [facility] Coding Staff appreciate your assistance in clarifying documentation. Please respond to the clarification below the line at the bottom and electronically sign. The CDI & [facility] Coding staff will review the response and follow-up if needed. Please note: Queries are made part of the Legal Health Record. If you have any questions, please contact the author of this message via ITS. Dr. Cordell Taveras: Unspecified anemia is documented in the 07/22 & 07/23 Attending Physician Progress Notes. Additional specificity regarding the Type & Acuity of Anemia is requested. History/Risk Factors per the 07/22 H/P: Hyperlipidemia, Psychiatric problems, lives in an [facility]. Chronic Renal Failure is documented in the ED Note. Clinical indicators: Presented to the ED on 07/21 via EMS as a transfer from [facility] after multiple falls, sustained a nondisplaced distal fibular fracture on the left. Found to be positive COVID 19 and have a UTI, Altered mental status. Complained of left lower leg area. Hemoglobin 07/21: 11.0. 07/22: 10.7. 07/23: 11.6 Hematocrit 07/21: 34.8. 07/22: 34.4. 07/23: 37.0 Treatment 07/21: Telemetry, Neurological Assessment, Mccracken Catheter, Pulse Oximetry q/shift, IV Ativan 2 mg x1, IV Ativan 1 mg q6H/prn, IM Haldol 5 mg x1, IV Morphine 4 mg q4H/prn, IV Rocephin 100 mls/hr q24H, Lovenox 40 mg sq Daily, IV Protonix 40 mg Daily, INH Duoneb TID/prn, IV Lasix 40 mg q12H Please clarify the type and acuity of anemia: [ ] Chronic blood loss anemia [ ] Anemia of chronic kidney disease [ ] Anemia of other chronic condition [ ] Other type of Anemia, please specify: [ ] Unable to determine (Template Last Revised: July 2020) MTDD
[2021-07-24] MEDS: IPRATROPIUM-ALBUTEROL 3 ML NEB INHALATION SCH ×3 (09:46→21:47)
--- NOTE | 2021-07-24 12:43 | P.NPCON ---
History of Present Illness - Reason for Consult acute renal failure - History of Present Illness Patient is a 55-year-old male with history of hyperlipidemia and psychiatric history: Lives in an assisted living. He was admitted to the hospital with history of fall and he was found to have a left fibular fracture Patient tested positive for over 19 PCR and an outside facility but he was negative here in the hospital. He had been confused. Patient received pain medications last night and this morning he is sleepy but arousable. Patient has a Mccracken catheter with good urine output. 24 hour urine output at 2.3 L. It appears that patient was noted to have urine retention and about 4000 mL was initially obtained. Serum creatinine was 2.2 on admission and increased to 2.6 today. Mccracken catheter was placed yesterday Chest x-ray from 221 showed evidence of acute pulmonary edema and patient is currently being diuresed. He is currently laying in bed comfortably and not requiring oxygen. Blood pressure is not significantly low except for one reading off 10 8 mmHg systolic. No IV contrast administration noted and no NSAIDs noted Review of Systems As per HPI Past Medical History Past Medical History: Unable to Obtain Additional Past Medical History / Comment(s): Guardian states she is unable to give me his medical history at this time. History of Any Multi-Drug Resistant Organisms: None Reported Past Surgical History: Unable to Obtain Additional Past Surgical History / Comment(s): Guardian states she is unable to give me his medical history at this time. Past Anesthesia/Blood Transfusion Reactions: No Reported Reaction Additional Psychological History / Comment(s): Pt lives alone in an apartment and relies on a caregiver. He is legally incapacitated according to his guardian. Smoking Status: Current every day smoker Past Drug Use History: None Reported Additional Drug Use History / Comment(s): Unable to obtain past drug use history. Medications and Allergies Home Medications Medication Instructions Recorded Confirmed Type Atorvastatin [Lipitor] 20 mg PO HS 07/21/21 07/21/21 History Benztropine Mesylate 1 mg PO HS 07/21/21 07/21/21 History Divalproex ER [Depakote ER] 1,500 mg PO HS 07/21/21 07/21/21 History Divalproex ER [Depakote ER] 250 mg PO HS 07/21/21 07/21/21 History LORazepam [Ativan] 1 mg PO TID 07/21/21 07/21/21 History OLANZapine [ZyPREXA] 20 mg PO HS 07/21/21 07/21/21 History haloperidoL [Haldol] 5 mg PO DAILY 07/21/21 07/21/21 History haloperidoL [Haldol] 10 mg PO HS 07/21/21 07/21/21 History lamoTRIgine [LaMICtal] 100 mg PO HS 07/21/21 07/21/21 History lamoTRIgine [LaMICtal] 200 mg PO DAILY 07/21/21 07/21/21 History Allergies Allergy/AdvReac Type Severity Reaction Status Date / Time No Known Allergies Allergy Verified 07/21/21 20:21 Physical Exam Vitals: Vital Signs Temp Pulse Resp BP Pulse Ox 07/24/21 08:10 92 L 07/24/21 08:00 99.7 F H 96 17 133/89 92 L 07/23/21 19:10 97.9 F 101 H 20 124/72 97 07/23/21 14:00 98.2 F 99 16 108/74 95 Intake and Output 07/23/21 07/24/21 07/24/21 22:59 06:59 14:59 Intake Total 50 Output Total 2300 Balance -2300 50 Intake: Intake, IV Titration 50 Amount cefTRIAXone 1 gm In 50 Sodium Chloride 0.9% 50 ml @ 100 mls/hr IVPB Q24HR [facility] Rx#:[id number] Output: Urine 2300 Other: Voiding Method Indwelling Catheter Indwelling Catheter Patient is comfortable he is sleeping but arousable. He he answers questions but quickly goes back to sleep. Examination of the heart S1 and S2 Examination lungs bilateral breath sounds are heard Abdomen is soft nontender Examination of lower extremities shows no edema right leg 1+ edema noted in his left leg mostly near the ankle. Patient has been moving all 4 extremities Results - Lab Results Most recent lab results Calcium 9.7 mg/dL (8.7-10.3) 07/23/21 05:22 Phosphorus 3.7 mg/dL (2.5-4.5) 07/22/21 07:02 Magnesium 2.2 mg/dL (1.6-2.3) 07/22/21 07:02 07/23/21 05:22 07/23/21 05:22 Assessment and Plan Assessment: 1. Acute kidney injury, nonoliguric. Mostly obstructive bed urine retention, currently with indwelling Mccracken catheter. Patient is also being diuresed I will decrease the Lasix and repeat chest x-ray. No nephrotoxic agents noted. UA is quite benign 2. Acute pulmonary edema on initial admission currently clinically improved. Ejection fraction 55-60% on echocardiogram on 07/23/2021 3. History of fall with left fibular fracture 4. Positive psychiatric history. Patient was on Depakote Haldol lAMICTAL,ZYPREXA and Ativan at home Plan: Decrease Lasix Repeat chest x-ray Repeat labs in a.m. Continue with Mccracken catheter Add Flomax
--- NOTE | 2021-07-24 13:34 | P.PN ---
Progress Note - Text Progress Note Date: 07/23/21 New tib/fib and ankle x-rays were reviewed. Continue weightbearing as tolerated in boot.
--- NOTE | 2021-07-24 13:52 | P.PN ---
Progress Note - Text Progress Note Date: 07/24/21 Interval History: Patient was seen resting in bed and was directable and agreeable to speak with jingle writer in his room. The patient is currently presenting as quite somnolent and is unable to fully participate in psychiatric interview. However, the patient is not reporting any suicidal or homicidal ideation, intention, and/or plan. He is not reporting any auditory or visual hallucinations. The patient stresses that he just feels "tired today." Mental Status Exam: General Appearance: Patient appears to be stated age is somnolent but directable and attempts to cooperate. Behavior: Patient is calmly lying down in bed without any agitated behavior. Speech: Patient's speech is fluent and nonpressured. Mood/Affect: Mood is "very tired today" Affect is congruent and somnolent Suicidality/Homicidality: Patient denies having any suicidal or homicidal ideation intent or plan. Perceptions: Patient denies any visual hallucinations and denies any auditory hallucinations Though content/process: There is no evidence of any delusional thought content and thought process is linear and goal-directed. Memory and concentration: Patient is alert and oriented to self only. Judgment and insight: Improving mildly Vital Signs Temp 99.7 F H 07/24/21 08:00 Pulse 94 07/24/21 12:54 Resp 17 07/24/21 08:00 BP 133/89 07/24/21 08:00 Pulse Ox 92 L 07/24/21 08:10 Intake & Output 07/23/21 07/24/21 07/24/21 18:59 06:59 18:59 Intake Total 50 50 Output Total 2300 Balance 50 -2300 50 Intake: Intake, IV Titration 50 50 Amount cefTRIAXone 1 gm In 50 50 Sodium Chloride 0.9% 50 ml @ 100 mls/hr IVPB Q24HR [facility] Rx#:[id number] Output: Urine 2300 Other: Voiding Method Indwelling Catheter Indwelling Catheter Indwelling Catheter Laboratory Results - Last 24 Hours 07/23/21 21:35 CK-MB (CK-2) 1.5 Assessment Altered mental status; likely multifactorial including polypharmacy, urinary tract infection, exacerbation of chronic mental illness , anemia Plan: -Continue your medical management -Patient DOES NOT have decision making capacity at this time and is unable to reason through and communicate/appreciate the risks, benefits and alternatives to treatment. -Delirium precautions recommended with patient including - avoiding use of narcotics and PHYSICIAN ASST sedatives, limit anticholinergic medications when possible, frequent re-orientation, minimize use of restraints, open window shades during the day and close them at night -Would recommend the following medication changes/additions: Continue Depakote 1750 mg by mouth at bedtime We'll decrease Haldol to 7.5 mg at bedtime. We will be conservative on psychiatric med adjustment as it is questionable as to how severe his mental illness is when uncontrolled. Continue Lamictal 100 mg twice daily Continue Zyprexa 20 mg by mouth at bedtime Ativan is ordered as needed at this time. -Will continue to follow along and will conservatively decrease medications which may contribute to excessive somnolence, however at this time, the patient is psychiatrically stable for discharge. He is not presenting with any manic or psychotic symptoms. He continues to display significant somnolence which may be a psychiatric med side effect or result of his anemia.
[2021-07-24] MEDS: TAMSULOSIN 0.4 MG CAP.ER.24H PO SCH (17:18)
[2021-07-24] MEDS: DIVALPROEX ER 250 MG TAB.ER.24H PO SCH (20:27)
[2021-07-24] MEDS: haloperidoL 5 MG TAB PO SCH (20:41)
[2021-07-24] MEDS: ATORVASTATIN 20 MG TAB PO SCH (20:41)
[2021-07-24] MEDS: DIVALPROEX ER 500 MG TAB.ER.24H PO SCH (20:42)
[2021-07-24] MEDS: OLANZapine 10 MG TAB PO SCH (20:42)
[2021-07-24] MEDS: BENZTROPINE MESYLATE 1 MG TAB PO SCH (20:42)
--- NOTE | 2021-07-24 22:27 | P.PN ---
Progress Note - Text Progress Note Date: 07/24/21 Hospital course Patient is a 55-year-old male who was recently admitted with recent fall and left femur fracture and previous hospital also found to have an acute urinary tract infection and some apparent psychiatric issues and is being closely monitored. Orthopedics following as well. Patient underwent further x-rays of the left tibia and fibula showing a demonstration of minimally displaced lateral malleolus fracture with no evidence of proximal tibia fibular fractures. Patient is also found to be Covid positive elsewhere and currently testing negative. Patient continues with confusion today and is also having some pain of the left shoulder with some bruising noted. Will obtain left shoulder x-ray which is currently pending. Psychiatry following and making adjustments to medications and continue to follow. Patient continues on IV ceftriaxone while awaiting for cultures to finalized. 2-D echo was done showing moderate concentric left ventricular hypertrophy with overall LV systolic function being normal with an EF of 55-60% patient denies chest pain, shortness of breath, or palpitations. Patient is afebrile. July 24: Patient of the sleepy tired./Delirious. Dose of Haldol cutback by psychiatry. Oral intake good Active Medications Acetaminophen (Acetaminophen Tab 325 Mg Tab) 650 mg PO Q6HR PRN PRN Reason: Mild Pain or Fever > 100.5 Albuterol/Ipratropium (Ipratropium-Albuterol 3 Ml Neb) 3 ml INHALATION RT-TID [facility] Last Admin: 07/24/21 21:47 Dose: 3 ml Documented by: Albuterol/Ipratropium (Ipratropium-Albuterol 3 Ml Neb) 3 ml INHALATION RT-TID PRN PRN Reason: Shortness Of Breath Or Wheezing Atorvastatin Calcium (Atorvastatin 20 Mg Tab) 20 mg PO [facility] Last Admin: 07/24/21 20:41 Dose: 20 mg Documented by: Benztropine Mesylate (Benztropine Mesylate 1 Mg Tab) 1 mg PO [facility] Last Admin: 07/24/21 20:42 Dose: 1 mg Documented by: Divalproex Sodium (Divalproex Er 250 Mg Tab.Er.24h) 250 mg PO [facility] Last Admin: 07/24/21 20:27 Dose: 250 mg Documented by: Divalproex Sodium (Divalproex Er 500 Mg Tab.Er.24h) 1,500 mg PO [facility] Last Admin: 07/24/21 20:42 Dose: 1,500 mg Documented by: Enoxaparin Sodium (Enoxaparin 40 Mg/0.4 Ml Syringe) 40 mg SQ DAILY [facility] Last Admin: 07/24/21 07:36 Dose: 40 mg Documented by: Furosemide (Furosemide 10 Mg/Ml 4 Ml Vial) 40 mg IV DAILY [facility] Haloperidol (Haloperidol 5 Mg Tab) 7.5 mg PO [facility] Last Admin: 07/24/21 20:41 Dose: 7.5 mg Documented by: Ceftriaxone Sodium 1 gm/ (Sodium Chloride) 50 mls @ 100 mls/hr IVPB Q24HR [facility] Last Admin: 07/24/21 07:36 Dose: 100 mls/hr Documented by: Lamotrigine (Lamotrigine 100 Mg Tab) 100 mg PO BID [facility] Last Admin: 07/24/21 20:42 Dose: 100 mg Documented by: Lorazepam (Lorazepam 2 Mg/Ml Inj) 1 mg IV Q6HR PRN PRN Reason: Anxiety Last Admin: 07/23/21 19:34 Dose: 1 mg Documented by: Lorazepam (Lorazepam 1 Mg Tab) 1 mg PO TID PRN PRN Reason: Agitation or Acute Anxiety Morphine Sulfate (Morphine Sulfate 4 Mg/Ml Syringe) 4 mg IV Q4HR PRN PRN Reason: Severe Pain Last Admin: 07/24/21 19:40 Dose: 4 mg Documented by: Naloxone HCl (Naloxone 0.4 Mg/Ml 1 Ml Vial) 0.2 mg IV Q2M PRN PRN Reason: Opioid Reversal Nicotine (Nicotine 21mg/24hr Patch) 1 patch TRANSDERM DAILY [facility] Last Admin: 07/24/21 07:36 Dose: 1 patch Documented by: Olanzapine (Olanzapine 10 Mg Tab) 20 mg PO [facility] Last Admin: 07/24/21 20:42 Dose: 20 mg Documented by: Ondansetron HCl (Ondansetron 4 Mg/2 Ml Vial) 4 mg IVP Q8HR PRN PRN Reason: Nausea And Vomiting Pantoprazole Sodium (Pantoprazole 40 Mg Tablet) 40 mg PO AC-BRKFST [facility] Last Admin: 07/24/21 07:36 Dose: 40 mg Documented by: Tamsulosin HCl (Tamsulosin 0.4 Mg Cap.Er.24h) 0.4 mg PO PC-SUPPER [facility] Last Admin: 07/24/21 17:18 Dose: 0.4 mg Documented by: Physical examination: Vitals: 99.6, 86, 17, 110/64, 98% room air GENERAL APPEARANCE: Tired, laying in bed HEENT: Normal external appearance of nose and ear. Oral cavity normal EYES: Pupils equal. Conjunctiva mild icterus NECK: JVD not raised. Mass not palpable. RESPIRATORY: Respiratory effort normal. Lungs decreased breath sounds CARDIOVASCULAR: First and second sounds normal. No edema. ABDOMEN: Soft. Liver and spleen not palpable. No tenderness. No mass palpable. MUSCULAR skeletal: Left shoulder bruising noted. Left ankle splint. PSYCHIATRY: Slow to answer INVESTIGATIONS, reviewed in the clinical context: White count 9.2 hemoglobin 11.6 platelets 21 potassium 4 creatinine 2.6 Assessment and plan: -Fall and possible left fibular fracture, most recent x-ray showing no evidence of proximal tibia fibular fractures -Left lateral malleolus fracture is noted on x-ray Follow with orthopedics -Acute kidney injury, nonoliguric. Mostly obstructive in the Mccracken catheter. Follow labs. Nephrology consulted -Psychiatry disorder: Details unknown Being followed by psychiatry -Acute urinary tract infection with sepsis, present on admission IV ceftriaxone COVID-19 positive, elsewhere, negative currently x2 Congestive heart failure -Acute metabolic encephalopathy/delirium possibly from infection -Legal guardian IV ceftriaxone. Dose of Haldol cutback by psychiatry. Oral intake fair.
--- NOTE | 2021-07-24 23:32 | XR ---
EXAMINATION TYPE: XR chest 1V DATE OF EXAM: 07/24/2021 COMPARISON: X-ray dated 07/22/2021 HISTORY: Congestive heart failure TECHNIQUE: Single frontal view of the chest is obtained. FINDINGS: Congested bilateral pulmonary vasculature with prominent interstitial lung markings and left basal pu lmonary atelectasis which could be related to pulmonary edema probably secondary to congestive heart failure, please correlate clinically. Questionable small left pleural effusion. No pneumothorax. Cardiac size can't be properly assessed. N o gross aggressive bone lesion. IMPRESSION: Findings may suggest pulmonary edema probably secondary to congestive heart failure, please correlate clinically.
[2021-07-25] MEDS: FUROSEMIDE 10 MG/ML 4 ML VIAL IV SCH (07:45)
[2021-07-25] MEDS: IPRATROPIUM-ALBUTEROL 3 ML NEB INHALATION SCH ×3 (08:49→21:01)
[2021-07-25] MEDS: ENOXAPARIN 40 MG/0.4 ML SYRINGE SQ SCH (09:00)
[2021-07-25] MEDS: lamoTRIgine 100 MG TAB PO SCH ×2 (09:00→21:28)
[2021-07-25] MEDS: NICOTINE 21MG/24HR PATCH TRANSDERM SCH (09:00)
[2021-07-25] MEDS: PANTOPRAZOLE 40 MG TABLET PO SCH (09:01)
--- NOTE | 2021-07-25 10:16 | CDI ---
Documentation Clarification Form Date: 07/25/2021 10:09:00 AM From: Yoana Agudelo CCS, CCDS Admit Date: 07/21/2021 09:52:00 PM Patient Name: Matt Garg Visit Number: [id number] Discharge Date: ATTENTION: The Clinical Documentation Specialists (CDI) and [facility] Coding Staff appreciate your assistance in clarifying documentation. Please respond to the clarification below the line at the bottom and electronically sign. The CDI & [facility] Coding staff will review the response and follow-up if needed. Please note: Queries are made part of the Legal Health Record. If you have any questions, please contact the author of this message via ITS. Dr. Jennyfer Dubon: Chronic Renal Failure is documented in the 07/21 ED Note without further specificity. Additional clarification regarding the stage of CKD is requested. History/Risk Factors per the 07/22 H/P: Hyperlipidemia, Psychiatric problems, lives in an RETIREMENT. Chronic Renal Failure is documented in the ED Note. Clinical indicators: Presented to the ED on 07/21 via EMS as a transfer from [facility] after multiple falls, sustained a nondisplaced distal fibular fracture on the left. Found to be positive COVID 19 and have a UTI, Altered mental status. Complained of left lower leg area. Admit with COVID-19, Altered mental status, Closed fracture of left distal fibula, Urinary tract infection, Chronic renal failure. 07/21 BUN 12, Creatinine 2.22, GFR 32 07/22 BUN 12, Creatinine 2.40, GFR 29 07/23 BUN 17.1, Creatinine 2.6, GFR 26.4 Historical GFR: None to compare Treatment 07/21: Telemetry, Neurological Assessment, Mccracken Catheter, Pulse Oximetry q/shift, IV Ativan 2 mg x1, IV Ativan 1 mg q6H/prn, IM Haldol 5 mg x1, IV Morphine 4 mg q4H/prn, IV Rocephin 100 mls/hr q24H, Lovenox 40 mg sq Daily, IV Protonix 40 mg Daily, INH Duoneb TID/prn, IV Lasix 40 mg q12H. 07/24 Nephrology Consult plan: Decrease Lasix, Repeat CXR, Repeat labs in a.m., continue Mccracken catheter, Add Flomax. Please clarify the stage of the CKD, if known: [ ] CKD Stage 3 (GFR 30-59) [ ] CKD Stage 3a (GFR 45-59) [ ] CKD Stage 3b (GFR 30-44) [ ] CKD Stage 4 (GFR 15-29) [ ] CKD ruled out [ ] Other, please specify: [ ] Unable to determine (Template Last revised: July 2020) unable to determine as no previous labs available. MTDD
[2021-07-25 11:48] LABS: African American GFR (CKD) 28 (>60 ml/min/1.73 sqM); Anion Gap 11 mmol/L; Blood Urea Nitrogen 40 mg/dL (9-20); Calcium 8.9 mg/dL (8.4-10.2); Carbon Dioxide 30 mmol/L (22-30); Chloride 96 mmol/L (98-107); Glucose 234 mg/dL (74-99); Non-African American GFR(CKD) 25 (>60 ml/min/1.73 sqM); Potassium 3.3 mmol/L (3.5-5.1); Sodium 137 mmol/L (137-145)
[2021-07-25] MEDS: POTASSIUM CHLORIDE ER 20 MEQ TAB.ER PO SCH ×2 (12:46→12:47)
--- NOTE | 2021-07-25 13:18 | P.PN ---
Subjective Patient is a 55-year-old male with history of hyperlipidemia and significant psychiatric history who lives in an assisted living. He was admitted to the hospital with history of fall and sustained a left fibular fracture. Patient also tested positive for COVID-19 PCR at an outside facility but he is negative here in the hospital. Serum creatinine had increased to 2.6 from 2.2 on initial admission. Mccracken catheter was placed for urine retention it appears that about 4 L of urine output was documented I'm not sure how much of this was on initial Mccracken placement. No significant hypotension noted. UA is quite benign. Patient is being diuresed for acute pulmonary edema. Currently he is comfortable and laying in bed with no respiratory distress. Lasix was decreased yesterday. Objective - Vital Signs Vital signs: Vital Signs Temp 97.8 F 07/25/21 07:23 Pulse 88 07/25/21 09:01 Resp 17 07/25/21 07:23 BP 104/67 07/25/21 07:23 Pulse Ox 93 L 07/25/21 07:45 Intake & Output 07/24/21 07/25/21 07/25/21 18:59 06:59 18:59 Intake Total 50 50 Output Total 1200 1500 1300 Balance -1150 -1500 -1250 Intake: Intake, IV Titration 50 50 Amount cefTRIAXone 1 gm In 50 50 Sodium Chloride 0.9% 50 ml @ 100 mls/hr IVPB Q24HR [facility] Rx#:[id number] Output: Urine 1200 1500 1300 Other: Voiding Method Indwelling Catheter Indwelling Catheter Indwelling Catheter - Exam Patient is awake he is comfortable. He does not communicate much, answers to simple questions. Examination of the heart S1 and S2 Examination lungs bilateral breath sounds are heard Abdomen is soft nontender Examination lower extremity shows 1+ edema left lower extremity. No significant edema noted in the right leg - Labs CBC & Chem 7: 07/23/21 05:22 07/25/21 10:55 Labs: Abnormal Lab Results - Last 24 Hours (Table) 07/25/21 Range/Units 10:55 Potassium 3.3 L (3.5-5.1) mmol/L Chloride 96 L (98-107) mmol/L BUN 40 H (9-20) mg/dL Creatinine 2.76 H (0.66-1.25) mg/dL Glucose 234 H (74-99) mg/dL Assessment and Plan Assessment: 1. Acute kidney injury, nonoliguric. Cardiorenal and associated with urine retention, currently with indwelling Mccracken catheter. Patient is also being diuresed. Lasix was decreased yesterday. B chest x-ray from today shows persistent bilateral pulmonary vascular congestion. I will continue with the Lasix as once a day. No nephrotoxic agents noted. UA is quite benign 2. Acute pulmonary edema on initial admission currently clinically improved. Ejection fraction 55-60% on echocardiogram on 07/23/2021 3. History of fall with left fibular fracture 4. Positive psychiatric history. Patient was on Depakote Haldol lAMICTAL,ZYPREXA and Ativan at home Plan: Continue current dose of IV Lasix Check ultrasound of the kidneys Repeat labs in a.m. Continue with Mccracken catheter Add Flomax
--- NOTE | 2021-07-25 13:59 | P.PN ---
Progress Note - Text Progress Note Date: 07/25/21 Interval History: Patient was seen resting in bed and was directable and agreeable to speak with content writer in his room. Currently, the patient is alert and oriented to person and place. The patient is unaware of the year. He does express that he is disappointed that he does not know the year as he is afraid that if he is unable to answer these questions appropriately, he would have to continue to stay in the hospital. He is otherwise not reporting any significant psychiatric pathology at this time. He is denying any suicidal or homicidal ideation, intention, and/or plan. He is denying any auditory or visual hallucinations. He is denying any paranoia or other delusions. The patient has been adherent with his medication and is not endorsing any significant side effects at this time. In regards to concerns for sedation, the patient reports that he feels like he is still confused as he has difficulty piecing his thoughts together however states that he feels more awake. Mental Status Exam: General Appearance: Patient appears to be stated age is somnolent but directable and attempts to cooperate. Behavior: Patient is calmly lying down in bed without any agitated behavior. Speech: Patient's speech is fluent and nonpressured. Mood/Affect: Mood is "a little upset" Affect is congruent and slightly sad Suicidality/Homicidality: Patient denies having any suicidal or homicidal ideation intent or plan. Perceptions: Patient denies any visual hallucinations and denies any auditory hallucinations Though content/process: There is no evidence of any delusional thought content and thought process is linear and goal-directed. Memory and concentration: Patient is alert and oriented to person and place but not to date. Concentration is grossly intact. Judgment and insight: Improving mildly Vital Signs Temp 97.8 F 07/25/21 07:23 Pulse 88 07/25/21 13:22 Resp 17 07/25/21 07:23 BP 104/67 07/25/21 07:23 Pulse Ox 93 L 07/25/21 07:45 Intake & Output 07/24/21 07/25/21 07/25/21 18:59 06:59 18:59 Intake Total 50 50 Output Total 1200 1500 1300 Balance -1150 -1500 -1250 Intake: Intake, IV Titration 50 50 Amount cefTRIAXone 1 gm In 50 50 Sodium Chloride 0.9% 50 ml @ 100 mls/hr IVPB Q24HR [facility] Rx#:[id number] Output: Urine 1200 1500 1300 Other: Voiding Method Indwelling Catheter Indwelling Catheter Indwelling Catheter Laboratory Results - Last 24 Hours 07/25/21 10:55 Sodium 137 Potassium 3.3 L Chloride 96 L Carbon Dioxide 30 Anion Gap 11 BUN 40 H Creatinine 2.76 H Est GFR (CKD-EPI)AfAm 28 Est GFR (CKD-EPI)NonAf 25 Glucose 234 H Calcium 8.9 Assessment Altered mental status; likely multifactorial including polypharmacy, urinary tract infection, exacerbation of chronic mental illness , anemia Plan: -Continue your medical management -Delirium precautions recommended with patient including - avoiding use of narcotics and RECRUITING AND SELECTION CONSULTANT sedatives, limit anticholinergic medications when possible, frequent re-orientation, minimize use of restraints, open window shades during the day and close them at night -Would recommend the following medication changes/additions: Continue Depakote 1750 mg by mouth at bedtime Continue Haldol 7.5 mg at bedtime at this time. Continue Lamictal 100 mg twice daily Continue Zyprexa 20 mg by mouth at bedtime Ativan is ordered as needed at this time. -The patient does not meet criteria for inpatient psychiatric hospitalization as he is not presenting with any overt manic or psychotic symptoms at this time. T he patient is cleared psychiatrically for discharge however psychiatry will continue to follow while the patient is admitted medically to continue to assess medication tolerance and monitor for any new psychotic symptoms with the recent medication adjustments.
--- NOTE | 2021-07-25 14:42 | US ---
EXAMINATION TYPE: US kidneys/renal and bladder DATE OF EXAM: 07/25/2021 COMPARISON: NONE CLINICAL HISTORY: rf. Renal failure, patient very confused and would not move to help with imaging EXAM MEASUREMENTS: Right Kidney: 9.8 x 4.1 x 5.8 cm Left Kidney: not seen Right Kidney: No hydronephrosis or masses seen Left Kidney: Obscured by overlying bowel gas Bladder: not distended IMPRESSION: Suboptimal ultrasound. Grossly unremarkable right kidney. The left kidney is not visualized. Nondiste nded urinary bladder.
[2021-07-25] MEDS: TAMSULOSIN 0.4 MG CAP.ER.24H PO SCH (17:06)
--- NOTE | 2021-07-25 20:15 | P.PN ---
Progress Note - Text Progress Note Date: 07/25/21 Hospital course Patient is a 55-year-old male who was recently admitted with recent fall and lef t femur fracture and previous hospital also found to have an acute urinary tract infection and some apparent psychiatric issues and is being closely monitored. Orthopedics following as well. Patient underwent further x-rays of the left tibia and fibula showing a demonstration of minimally displaced lateral malleolus fracture with no evidence of proximal tibia fibular fractures. Patient is also found to be Covid positive elsewhere and currently testing negative. Patient continues with confusion today and is also having some pain of the left shoulder with some bruising noted. Will obtain left shoulder x-ray which is currently pending. Psychiatry following and making adjustments to medications and continue to follow. Patient continues on IV ceftriaxone while awaiting for cultures to finalized. 2-D echo was done showing moderate concentric left ventricular hypertrophy with overall LV systolic function being normal with an EF of 55-60% patient denies chest pain, shortness of breath, or palpitations. Patient is afebrile. July 24: Patient of the sleepy tired./Delirious. Dose of Haldol cutback by psychiatry. Oral intake good July 25: More awake today. Eating well. On IV Lasix per nephrology. Ativan has been changed to when necessary. Active Medications Acetaminophen (Acetaminophen Tab 325 Mg Tab) 650 mg PO Q6HR PRN PRN Reason: Mild Pain or Fever > 100.5 Albuterol/Ipratropium (Ipratropium-Albuterol 3 Ml Neb) 3 ml INHALATION RT-TID [facility] Last Admin: 07/25/21 13:10 Dose: 3 ml Documented by: Albuterol/Ipratropium (Ipratropium-Albuterol 3 Ml Neb) 3 ml INHALATION RT-TID PRN PRN Reason: Shortness Of Breath Or Wheezing Atorvastatin Calcium (Atorvastatin 20 Mg Tab) 20 mg PO [facility] Last Admin: 07/24/21 20:41 Dose: 20 mg Documented by: Benztropine Mesylate (Benztropine Mesylate 1 Mg Tab) 1 mg PO [facility] Last Admin: 07/24/21 20:42 Dose: 1 mg Documented by: Divalproex Sodium (Divalproex Er 250 Mg Tab.Er.24h) 250 mg PO [facility] Last Admin: 07/24/21 20:27 Dose: 250 mg Documented by: Divalproex Sodium (Divalproex Er 500 Mg Tab.Er.24h) 1,500 mg PO [facility] Last Admin: 07/24/21 20:42 Dose: 1,500 mg Documented by: Enoxaparin Sodium (Enoxaparin 30 Mg/0.3 Ml Syringe) 30 mg SQ DAILY [facility] Furosemide (Furosemide 10 Mg/Ml 4 Ml Vial) 40 mg IV DAILY [facility] Last Admin: 07/25/21 07:45 Dose: 40 mg Documented by: Haloperidol (Haloperidol 5 Mg Tab) 7.5 mg PO [facility] Last Admin: 07/24/21 20:41 Dose: 7.5 mg Documented by: Ceftriaxone Sodium 1 gm/ (Sodium Chloride) 50 mls @ 100 mls/hr IVPB Q24HR [facility] Last Admin: 07/25/21 09:00 Dose: 100 mls/hr Documented by: Lamotrigine (Lamotrigine 100 Mg Tab) 100 mg PO BID [facility] Last Admin: 07/25/21 09:00 Dose: 100 mg Documented by: Lorazepam (Lorazepam 2 Mg/Ml Inj) 1 mg IV Q6HR PRN PRN Reason: Anxiety Last Admin: 07/23/21 19:34 Dose: 1 mg Documented by: Lorazepam (Lorazepam 1 Mg Tab) 1 mg PO TID PRN PRN Reason: Agitation or Acute Anxiety Morphine Sulfate (Morphine Sulfate 4 Mg/Ml Syringe) 4 mg IV Q4HR PRN PRN Reason: Severe Pain Last Admin: 07/24/21 19:40 Dose: 4 mg Documented by: Naloxone HCl (Naloxone 0.4 Mg/Ml 1 Ml Vial) 0.2 mg IV Q2M PRN PRN Reason: Opioid Reversal Nicotine (Nicotine 21mg/24hr Patch) 1 patch TRANSDERM DAILY [facility] Last Admin: 07/25/21 09:00 Dose: 1 patch Documented by: Olanzapine (Olanzapine 10 Mg Tab) 20 mg PO [facility] Last Admin: 07/24/21 20:42 Dose: 20 mg Documented by: Ondansetron HCl (Ondansetron 4 Mg/2 Ml Vial) 4 mg IVP Q8HR PRN PRN Reason: Nausea And Vomiting Pantoprazole Sodium (Pantoprazole 40 Mg Tablet) 40 mg PO AC-BRKFST [facility] Last Admin: 07/25/21 09:01 Dose: 40 mg Documented by: Tamsulosin HCl (Tamsulosin 0.4 Mg Cap.Er.24h) 0.4 mg PO [facility] Last Admin: 07/25/21 17:06 Dose: 0.4 mg Documented by: Physical examination: Vitals: 98.6, 91, 17, 110/73, 94% room air GENERAL APPEARANCE: Less sleepy, laying in bed HEENT: Normal external appearance of nose and ear. Oral cavity normal EYES: Pupils equal. Conjunctiva mild icterus NECK: JVD not raised. Mass not palpable. RESPIRATORY: Respiratory effort normal. Lungs decreased breath sounds CARDIOVASCULAR: First and second sounds normal. No edema. ABDOMEN: Soft. Liver and spleen not palpable. No tenderness. No mass palpable. MUSCULAR skeletal: Left shoulder bruising noted. Has a port for left ankle PSYCHIATRY: Answering simple questions INVESTIGATIONS, reviewed in the clinical context: July 25: Potassium 3.3 BUN 40 creatinine 2.76 White count 9.2 hemoglobin 11.6 platelets 21 potassium 4 creatinine 2.6 Assessment and plan: -Fall and possible left fibular fracture, most recent x-ray showing no evidence of proximal tibia fibular fractures -Left lateral malleolus fracture is noted on x-ray Weightbearing as tolerated with the boot -Acute kidney injury, nonoliguric. Mostly obstructive in the Mccracken catheter. Follow labs. Nephrology follow-up. Flomax. Suboptimal renal ultrasound -Psychiatry disorder: Details unknown Being followed by psychiatry -Acute urinary tract infection with sepsis, present on admission Changed to Keflex COVID-19 positive, elsewhere, negative currently x2 Congestive heart failure -Acute metabolic encephalopathy/delirium possibly from infection -Legal guardian IV ceftriaxone. Oral intake good. Continue IV Lasix. Follow nephrology.
[2021-07-25] MEDS: ATORVASTATIN 20 MG TAB PO SCH (21:28)
[2021-07-25] MEDS: OLANZapine 10 MG TAB PO SCH (21:28)
[2021-07-25] MEDS: BENZTROPINE MESYLATE 1 MG TAB PO SCH (21:28)
[2021-07-25] MEDS: haloperidoL 5 MG TAB PO SCH (21:28)
[2021-07-25] MEDS: DIVALPROEX ER 500 MG TAB.ER.24H PO SCH (21:28)
[2021-07-25] MEDS: DIVALPROEX ER 250 MG TAB.ER.24H PO SCH (21:28)
[2021-07-26] MEDS: FUROSEMIDE 10 MG/ML 4 ML VIAL IV SCH (08:07)
[2021-07-26] MEDS: PANTOPRAZOLE 40 MG TABLET PO SCH (09:35)
[2021-07-26] MEDS: lamoTRIgine 100 MG TAB PO SCH ×2 (09:35→22:06)
[2021-07-26] MEDS: NICOTINE 21MG/24HR PATCH TRANSDERM SCH ×2 (09:35→09:38)
[2021-07-26] MEDS: ENOXAPARIN 30 MG/0.3 ML SYRINGE SQ SCH (09:35)
--- NOTE | 2021-07-26 09:49 | P.PN ---
Subjective Patient is seen in follow-up for acute kidney injury. Creatinine 2.76 yesterday. Has a Mccracken catheter for urinary retention. Urine output over 2 L in the last 24 hours. Also on IV Lasix. Denies chest pain or shortness of breath. Currently on room air. Blood pressure stable. Vital signs are stable. General: Resting in bed. HEENT: Head exam is unremarkable. LUNGS: Breath sounds decreased. HEART: Rate and Rhythm are regular. ABDOMEN: Soft, no distention. EXTREMITITES: 1+ edema. Objective - Vital Signs Vital signs: Vital Signs Temp 97.8 F 07/26/21 07:07 Pulse 86 07/26/21 07:07 Resp 17 07/26/21 07:07 BP 117/77 07/26/21 07:07 Pulse Ox 93 L 07/26/21 07:07 Intake & Output 07/25/21 07/26/21 07/26/21 18:59 06:59 18:59 Intake Total 50 1000 180 Output Total 1300 800 Balance -1250 200 180 Intake: Intake, IV Titration 50 Amount cefTRIAXone 1 gm In 50 Sodium Chloride 0.9% 50 ml @ 100 mls/hr IVPB Q24HR [facility] Rx#:[id number] Oral 1000 180 Output: Urine 1300 800 Other: Voiding Method Indwelling Catheter Indwelling Catheter Indwelling Catheter - Labs CBC & Chem 7: 07/23/21 05:22 07/25/21 10:55 Labs: Abnormal Lab Results - Last 24 Hours (Table) 07/25/21 Range/Units 10:55 Potassium 3.3 L (3.5-5.1) mmol/L Chloride 96 L (98-107) mmol/L BUN 40 H (9-20) mg/dL Creatinine 2.76 H (0.66-1.25) mg/dL Glucose 234 H (74-99) mg/dL Assessment and Plan Plan: Assessment: 1. Acute kidney injury secondary to ATN secondary to cardiorenal syndrome. Also component of urinary retention. Creatinine 2.76 yesterday. Unknown baseline renal function. No hydronephrosis noted on kidney ultrasound. UA benign. 2. Volume overload with pulmonary edema. Improved. On room air. 3. Acute on chronic diastolic CHF. 4. Urinary retention status post Mccracken catheter placement. On Flomax. 5. Hypokalemia from diuresis. Replaced. 6. Fall with left fibular fracture. Plan: Maintain IV Lasix. Continue to monitor renal function and urine output.
[2021-07-26] MEDS: IPRATROPIUM-ALBUTEROL 3 ML NEB INHALATION SCH ×3 (10:01→20:43)
--- NOTE | 2021-07-26 14:18 | P.PN ---
Progress Note - Text Progress Note Date: 07/26/21 Interval History: Patient was seen resting in bed and was directable and agreeable to speak with bond writer in his room. Currently, the patient is alert and oriented to person, place, and time. He does express that he is a little annoyed that he continues to be admitted to the hospital and is wishing to leave. However, the patient understands that he needs to stay in order for his medical issues to be addressed. He is currently not reporting any suicidal or homicidal ideation, intention,/or plan. He denies any auditory or visual hallucinations. He reports no paranoid delusions. The patient has been adherent with his medications and is not endorsing any significant side effects at this time. Mental Status Exam: General Appearance: Patient appears to be stated age, is alert, cooperative. Behavior: Patient is calmly lying down in bed without any agitated behavior. Speech: Patient's speech is fluent and nonpressured. Mood/Affect: Mood is "a little upset" Affect is slightly ornery but is able to calm down Suicidality/Homicidality: Patient denies having any suicidal or homicidal ideation intent or plan. Perceptions: Patient denies any visual hallucinations and denies any auditory hallucinations Though content/process: There is no evidence of any delusional thought content and thought process is linear and goal-directed. Memory and concentration: Patient is alert and oriented to person, place, and time. Concentration is grossly intact. Judgment and insight: Improving mildly Vital Signs Temp 97.8 F 07/26/21 07:07 Pulse 86 07/26/21 07:07 Resp 17 07/26/21 07:07 BP 117/77 07/26/21 07:07 Pulse Ox 93 L 07/26/21 07:07 Intake & Output 07/25/21 07/26/21 07/26/21 18:59 06:59 18:59 Intake Total 50 1000 180 Output Total 9014 506 2101 Balance -1250 200 -1720 Intake: Intake, IV Titration 50 Amount cefTRIAXone 1 gm In 50 Sodium Chloride 0.9% 50 ml @ 100 mls/hr IVPB Q24HR [facility] Rx#:[id number] Oral 1000 180 Output: Urine 4895 209 1634 Other: Voiding Method Indwelling Catheter Indwelling Catheter Indwelling Catheter Assessment Altered mental status; appears resolved Plan: -Continue your medical management -Delirium precautions recommended with patient including - avoiding use of narcotics and [employer] sedatives, limit anticholinergic medications when possible, frequent re-orientation, minimize use of restraints, open window shades during the day and close them at night -Would recommend the following medication changes/additions: Continue Depakote 1750 mg by mouth at bedtime Continue Haldol 7.5 mg at bedtime at this time. Continue Lamictal 100 mg twice daily Continue Zyprexa 20 mg by mouth at bedtime Ativan is ordered as needed at this time. -The patient does not meet criteria for inpatient psychiatric hospitalization as he is not presenting with any overt manic or psychotic symptoms at this time. Psychiatry will sign off at this time. Please reconsult us or call us with any questions if necessary.
[2021-07-26 14:46] VITALS: BMI 41.0
--- NOTE | 2021-07-26 16:52 | P.PN ---
Progress Note - Text Progress Note Date: 07/26/21 Hospital course Patient is a 55-year-old male who was recently admitted with recent fall and lef t femur fracture and previous hospital also found to have an acute urinary tract infection and some apparent psychiatric issues and is being closely monitored. Orthopedics following as well. Patient underwent further x-rays of the left tibia and fibula showing a demonstration of minimally displaced lateral malleolus fracture with no evidence of proximal tibia fibular fractures. Patient is also found to be Covid positive elsewhere and currently testing negative. Patient continues with confusion today and is also having some pain of the left shoulder with some bruising noted. Will obtain left shoulder x-ray which is currently pending. Psychiatry following and making adjustments to medications and continue to follow. Patient continues on IV ceftriaxone while awaiting for cultures to finalized. 2-D echo was done showing moderate concentric left ventricular hypertrophy with overall LV systolic function being normal with an EF of 55-60% patient denies chest pain, shortness of breath, or palpitations. Patient is afebrile. July 24: Patient of the sleepy tired./Delirious. Dose of Haldol cutback by psychiatry. Oral intake good July 25: More awake today. Eating well. On IV Lasix per nephrology. Ativan has been changed to when necessary. July 26: Good oral intake. Far more vocal today. No change of medications per psychiatry. IV Lasix to continue per nephrology. Patient was orthopedics to come back and look at his left knee pain. Active Medications Acetaminophen (Acetaminophen Tab 325 Mg Tab) 650 mg PO Q6HR PRN PRN Reason: Mild Pain or Fever > 100.5 Albuterol/Ipratropium (Ipratropium-Albuterol 3 Ml Neb) 3 ml INHALATION RT-TID [facility] Last Admin: 07/26/21 11:35 Dose: Not Given Documented by: Albuterol/Ipratropium (Ipratropium-Albuterol 3 Ml Neb) 3 ml INHALATION RT-TID PRN PRN Reason: Shortness Of Breath Or Wheezing Atorvastatin Calcium (Atorvastatin 20 Mg Tab) 20 mg PO [facility] Last Admin: 07/25/21 21:28 Dose: 20 mg Documented by: Benztropine Mesylate (Benztropine Mesylate 1 Mg Tab) 1 mg PO [facility] Last Admin: 07/25/21 21:28 Dose: 1 mg Documented by: Divalproex Sodium (Divalproex Er 250 Mg Tab.Er.24h) 250 mg PO [facility] Last Admin: 07/25/21 21:28 Dose: 250 mg Documented by: Divalproex Sodium (Divalproex Er 500 Mg Tab.Er.24h) 1,500 mg PO HS [facility] Last Admin: 07/25/21 21:28 Dose: 1,500 mg Documented by: Enoxaparin Sodium (Enoxaparin 30 Mg/0.3 Ml Syringe) 30 mg SQ DAILY [facility] Last Admin: 07/26/21 09:35 Dose: 30 mg Documented by: Furosemide (Furosemide 10 Mg/Ml 4 Ml Vial) 40 mg IV DAILY [facility] Last Admin: 07/26/21 08:07 Dose: 40 mg Documented by: Haloperidol (Haloperidol 5 Mg Tab) 7.5 mg PO [facility] Last Admin: 07/25/21 21:28 Dose: 7.5 mg Documented by: Ceftriaxone Sodium 1 gm/ (Sodium Chloride) 50 mls @ 100 mls/hr IVPB Q24HR [facility] Last Admin: 07/26/21 09:35 Dose: 100 mls/hr Documented by: Lamotrigine (Lamotrigine 100 Mg Tab) 100 mg PO BID [facility] Last Admin: 07/26/21 09:35 Dose: 100 mg Documented by: Lorazepam (Lorazepam 2 Mg/Ml Inj) 1 mg IV Q6HR PRN PRN Reason: Anxiety Last Admin: 07/23/21 19:34 Dose: 1 mg Documented by: Lorazepam (Lorazepam 1 Mg Tab) 1 mg PO TID PRN PRN Reason: Agitation or Acute Anxiety Morphine Sulfate (Morphine Sulfate 4 Mg/Ml Syringe) 4 mg IV Q4HR PRN PRN Reason: Severe Pain Last Admin: 07/24/21 19:40 Dose: 4 mg Documented by: Naloxone HCl (Naloxone 0.4 Mg/Ml 1 Ml Vial) 0.2 mg IV Q2M PRN PRN Reason: Opioid Reversal Nicotine (Nicotine 21mg/24hr Patch) 1 patch TRANSDERM DAILY [facility] Last Admin: 07/26/21 09:38 Dose: Not Given Documented by: Olanzapine (Olanzapine 10 Mg Tab) 20 mg PO [facility] Last Admin: 07/25/21 21:28 Dose: 20 mg Documented by: Ondansetron HCl (Ondansetron 4 Mg/2 Ml Vial) 4 mg IVP Q8HR PRN PRN Reason: Nausea And Vomiting Pantoprazole Sodium (Pantoprazole 40 Mg Tablet) 40 mg PO AC-BRKFST [facility] Last Admin: 07/26/21 09:35 Dose: 40 mg Documented by: Tamsulosin HCl (Tamsulosin 0.4 Mg Cap.Er.24h) 0.4 mg PO [facility]ER [facility] Last Admin: 07/25/21 17:06 Dose: 0.4 mg Documented by: Physical examination: Vitals: 97.7, 88, 17, 119/79, 96% room air GENERAL APPEARANCE: Awake, laying in bed, comfortable HEENT: Normal external appearance of nose and ear. Oral cavity normal EYES: Pupils equal. Conjunctiva mild icterus NECK: JVD not raised. Mass not palpable. RESPIRATORY: Respiratory effort normal. Lungs decreased breath sounds CARDIOVASCULAR: First and second sounds normal. No edema. ABDOMEN: Soft. Liver and spleen not palpable. No tenderness. No mass palpable. MUSCULAR skeletal: Left shoulder bruising PSYCHIATRY: Answering questions appropriately. A bit anxious INVESTIGATIONS, reviewed in the clinical context: July 25: Potassium 3.3 BUN 40 creatinine 2.76 White count 9.2 hemoglobin 11.6 platelets 21 potassium 4 creatinine 2.6 Assessment and plan: -Fall and possible left fibular fracture, most recent x-ray showing no evidence of proximal tibia fibular fractures -Left lateral malleolus fracture is noted on x-ray Weightbearing as tolerated with the boot -Acute kidney injury, nonoliguric. Mostly obstructive in the Mccracken catheter. Follow labs. Nephrology follow-up. Flomax. Suboptimal renal ultrasound -Psychiatry disorder: Possibly delirium Being followed by psychiatry -Acute urinary tract infection with sepsis, present on admission Changed to Keflex COVID-19 positive, elsewhere, negative currently x2 Congestive heart failure -Acute metabolic encephalopathy/delirium possibly from infection -Legal guardian By mouth Keflex. Oral intake good. Continue IV Lasix. Follow nephrology. Orthopedics to review patient's left knee pain.
[2021-07-26] MEDS: TAMSULOSIN 0.4 MG CAP.ER.24H PO SCH (17:12)
[2021-07-26 20:43] LABS: Glucose,Whole Blood 258 mg/dL (75-99)
[2021-07-26] MEDS: INSULIN ASPART (NovoLOG) 100 UNIT/ML VIAL SQ SCH (22:03)
[2021-07-26] MEDS: haloperidoL 5 MG TAB PO SCH (22:06)
[2021-07-26] MEDS: BENZTROPINE MESYLATE 1 MG TAB PO SCH (22:06)
[2021-07-26] MEDS: DIVALPROEX ER 500 MG TAB.ER.24H PO SCH (22:06)
[2021-07-26] MEDS: ATORVASTATIN 20 MG TAB PO SCH (22:07)
[2021-07-26] MEDS: OLANZapine 10 MG TAB PO SCH (22:07)
[2021-07-26] MEDS: DIVALPROEX ER 250 MG TAB.ER.24H PO SCH (22:07)
[2021-07-27 07:05] LABS: Glucose,Whole Blood 202 mg/dL (75-99)
[2021-07-27 07:06] LABS: Potassium 3.7 mmol/L (3.5-5.1)
[2021-07-27 07:07] LABS: African American GFR (CKD) 30 (>60 ml/min/1.73 sqM); Anion Gap 6 mmol/L; Blood Urea Nitrogen 54 mg/dL (9-20); Calcium 8.8 mg/dL (8.4-10.2); Carbon Dioxide 31 mmol/L (22-30); Chloride 101 mmol/L (98-107); Glucose 168 mg/dL (74-99); Magnesium 2.9 mg/dL (1.6-2.3); Non-African American GFR(CKD) 26 (>60 ml/min/1.73 sqM); Sodium 138 mmol/L (137-145)
[2021-07-27] MEDS: INSULIN ASPART (NovoLOG) 100 UNIT/ML VIAL SQ SCH ×4 (07:36→20:41)
[2021-07-27] MEDS: FUROSEMIDE 10 MG/ML 4 ML VIAL IV SCH (07:37)
[2021-07-27] MEDS: lamoTRIgine 100 MG TAB PO SCH ×2 (07:37→20:42)
[2021-07-27] MEDS: PANTOPRAZOLE 40 MG TABLET PO SCH (07:37)
[2021-07-27] MEDS: NICOTINE 21MG/24HR PATCH TRANSDERM SCH (07:38)
[2021-07-27] MEDS: ENOXAPARIN 30 MG/0.3 ML SYRINGE SQ SCH (07:38)
[2021-07-27] MEDS: IPRATROPIUM-ALBUTEROL 3 ML NEB INHALATION SCH ×3 (08:42→19:17)
[2021-07-27 11:24] LABS: Glucose,Whole Blood 191 mg/dL (75-99)
--- NOTE | 2021-07-27 15:00 | P.PN ---
Subjective Progress Note Date: 07/27/21 Follow-up for acute kidney injury. Urine output of 4.8 L. Objective - Vital Signs Vital signs: Vital Signs Temp 98.9 F 07/27/21 14:00 Pulse 82 07/27/21 14:00 Resp 17 07/27/21 14:00 BP 118/74 07/27/21 14:00 Pulse Ox 95 07/27/21 14:00 Intake & Output 07/26/21 07/27/21 07/27/21 18:59 06:59 18:59 Intake Total 180 Output Total 1900 2900 1300 Balance -1720 -2900 -1300 Weight 122.47 kg Intake: Oral 180 Output: Urine 1900 2900 1300 Other: Voiding Method Indwelling Catheter Indwelling Catheter Indwelling Catheter # Bowel Movements 0 - Exam No acute distress S1-S2 heard Decreased breath sounds Edema - Labs CBC & Chem 7: 07/23/21 05:22 07/27/21 06:27 Labs: Abnormal Lab Results - Last 24 Hours (Table) 07/26/21 07/27/21 07/27/21 Range/Units 20:39 06:27 06:27 Carbon Dioxide 31 H (22-30) mmol/L BUN 54 H (9-20) mg/dL Creatinine 2.65 H (0.66-1.25) mg/dL Glucose 168 H (74-99) mg/dL POC Glucose (mg/dL) 258 H (75-99) mg/dL Hemoglobin A1c 9.8 H (0.0-6.0) % Magnesium 2.9 H (1.6-2.3) mg/dL 07/27/21 07/27/21 Range/Units 07:02 11:12 Carbon Dioxide (22-30) mmol/L BUN (9-20) mg/dL Creatinine (0.66-1.25) mg/dL Glucose (74-99) mg/dL POC Glucose (mg/dL) 202 H 191 H (75-99) mg/dL Hemoglobin A1c (0.0-6.0) % Magnesium (1.6-2.3) mg/dL Assessment and Plan Assessment: #1 acute kidney injury secondary to cardiorenal syndrome. So component of urinary retention. -Unknown baseline creatinine. -No hydronephrosis on renal ultrasound #2 volume overload with pulmonary edema better. #3 urinary retention status post Mccracken #4 diabetes. Plan: #1 renal function stable. #2 continue with Lasix 40 mg, at discharge change to 40 mg by mouth daily #3 avoid nephrotoxic agents.
[2021-07-27 16:27] LABS: Glucose,Whole Blood 249 mg/dL (75-99)
[2021-07-27] MEDS: CEPHALEXIN 250 MG CAP PO SCH ×2 (16:54→20:41)
--- NOTE | 2021-07-27 18:48 | P.PN ---
Progress Note - Text Progress Note Date: 07/27/21 Hospital course Patient is a 55-year-old male who was recently admitted with recent fall and lef t femur fracture and previous hospital also found to have an acute urinary tract infection and some apparent psychiatric issues and is being closely monitored. Orthopedics following as well. Patient underwent further x-rays of the left tibia and fibula showing a demonstration of minimally displaced lateral malleolus fracture with no evidence of proximal tibia fibular fractures. Patient is also found to be Covid positive elsewhere and currently testing negative. Patient continues with confusion today and is also having some pain of the left shoulder with some bruising noted. Will obtain left shoulder x-ray which is currently pending. Psychiatry following and making adjustments to medications and continue to follow. Patient continues on IV ceftriaxone while awaiting for cultures to finalized. 2-D echo was done showing moderate concentric left ventricular hypertrophy with overall LV systolic function being normal with an EF of 55-60% patient denies chest pain, shortness of breath, or palpitations. Patient is afebrile. July 24: Patient of the sleepy tired./Delirious. Dose of Haldol cutback by psychiatry. Oral intake good July 25: More awake today. Eating well. On IV Lasix per nephrology. Ativan has been changed to when necessary. July 26: Good oral intake. Far more vocal today. No change of medications per psychiatry. IV Lasix to continue per nephrology. Patient was orthopedics to come back and look at his left knee pain. July 27: Sitting up in bed. Comfortable. Doesn't like hospital food. Oral intake variable. Active Medications Acetaminophen (Acetaminophen Tab 325 Mg Tab) 650 mg PO Q6HR PRN PRN Reason: Mild Pain or Fever > 100.5 Albuterol/Ipratropium (Ipratropium-Albuterol 3 Ml Neb) 3 ml INHALATION RT-TID [facility] Last Admin: 07/27/21 11:36 Dose: 3 ml Documented by: Albuterol/Ipratropium (Ipratropium-Albuterol 3 Ml Neb) 3 ml INHALATION RT-TID PRN PRN Reason: Shortness Of Breath Or Wheezing Atorvastatin Calcium (Atorvastatin 20 Mg Tab) 20 mg PO HS [facility] Last Admin: 07/26/21 22:07 Dose: 20 mg Documented by: Benztropine Mesylate (Benztropine Mesylate 1 Mg Tab) 1 mg PO [facility] Last Admin: 07/26/21 22:06 Dose: 1 mg Documented by: Cephalexin (Cephalexin 250 Mg Cap) 250 mg PO TID [facility]; Protocol Last Admin: 07/27/21 16:54 Dose: 250 mg Documented by: Divalproex Sodium (Divalproex Er 250 Mg Tab.Er.24h) 250 mg PO [facility] Last Admin: 07/26/21 22:07 Dose: 250 mg Documented by: Divalproex Sodium (Divalproex Er 500 Mg Tab.Er.24h) 1,500 mg PO [facility] Last Admin: 07/26/21 22:06 Dose: 1,500 mg Documented by: Enoxaparin Sodium (Enoxaparin 30 Mg/0.3 Ml Syringe) 30 mg SQ DAILY [facility] Last Admin: 07/27/21 07:38 Dose: 30 mg Documented by: Furosemide (Furosemide 10 Mg/Ml 4 Ml Vial) 40 mg IV DAILY [facility] Last Admin: 07/27/21 07:37 Dose: 40 mg Documented by: Haloperidol (Haloperidol 5 Mg Tab) 7.5 mg PO [facility] Last Admin: 07/26/21 22:06 Dose: 7.5 mg Documented by: Insulin Aspart (Insulin Aspart (Novolog) 100 Unit/Ml Vial) [address] [facility]; Protocol Last Admin: 07/27/21 16:54 Dose: 5 unit Documented by: Lamotrigine (Lamotrigine 100 Mg Tab) 100 mg PO BID [facility] Last Admin: 07/27/21 07:37 Dose: 100 mg Documented by: Lorazepam (Lorazepam 2 Mg/Ml Inj) 1 mg IV Q6HR PRN PRN Reason: Anxiety Last Admin: 07/23/21 19:34 Dose: 1 mg Documented by: Lorazepam (Lorazepam 1 Mg Tab) 1 mg PO TID PRN PRN Reason: Agitation or Acute Anxiety Morphine Sulfate (Morphine Sulfate 4 Mg/Ml Syringe) 4 mg IV Q4HR PRN PRN Reason: Severe Pain Last Admin: 07/24/21 19:40 Dose: 4 mg Documented by: Naloxone HCl (Naloxone 0.4 Mg/Ml 1 Ml Vial) 0.2 mg IV Q2M PRN PRN Reason: Opioid Reversal Nicotine (Nicotine 21mg/24hr Patch) 1 patch TRANSDERM DAILY [facility] Last Admin: 07/27/21 07:38 Dose: Not Given Documented by: Olanzapine (Olanzapine 10 Mg Tab) 20 mg PO HS [facility] Last Admin: 07/26/21 22:07 Dose: 20 mg Documented by: Ondansetron HCl (Ondansetron 4 Mg/2 Ml Vial) 4 mg IVP Q8HR PRN PRN Reason: Nausea And Vomiting Pantoprazole Sodium (Pantoprazole 40 Mg Tablet) 40 mg PO AC-BRKFST [facility] Last Admin: 07/27/21 07:37 Dose: 40 mg Documented by: Tamsulosin HCl (Tamsulosin 0.4 Mg Cap.Er.24h) 0.4 mg PO PC-SUPPER [facility] Last Admin: 07/26/21 17:12 Dose: 0.4 mg Documented by: Physical examination: Vitals: 98.9, 82, 17, 118/74, 95% room air GENERAL APPEARANCE: Awake, reclining in bed, comfortable HEENT: Normal external appearance of nose and ear. Oral cavity normal EYES: Pupils equal. Conjunctiva mild icterus NECK: JVD not raised. Mass not palpable. RESPIRATORY: Respiratory effort normal. Lungs decreased breath sounds CARDIOVASCULAR: First and second sounds normal. No edema. ABDOMEN: Soft. Liver and spleen not palpable. No tenderness. No mass palpable. MUSCULAR skeletal: Left shoulder bruising PSYCHIATRY: Answering questions appropriately. A bit anxious INVESTIGATIONS, reviewed in the clinical context: July 27: Potassium 3.7 BUN 54 creatinine 2.65 July 25: Potassium 3.3 BUN 40 creatinine 2.76 White count 9.2 hemoglobin 11.6 platelets 21 potassium 4 creatinine 2.6 Assessment and plan: -Fall and possible left fibular fracture, most recent x-ray showing no evidence of proximal tibia fibular fractures -Left lateral malleolus fracture is noted on x-ray Weightbearing as tolerated with the boot -Acute kidney injury, nonoliguric. Mostly obstructive in the Mccracken catheter. Follow labs. Nephrology follow-up. Flomax. Suboptimal renal ultrasound -Psychiatry disorder: Possibly delirium Being followed by psychiatry -Acute urinary tract infection with sepsis, present on admission Changed to Keflex COVID-19 positive, elsewhere, negative currently x2 Congestive heart failure -Acute metabolic encephalopathy/delirium possibly from infection -Legal guardian Keflex. Does not like hospital food. Continue IV Lasix.- nephrology. Other medications to continue.
[2021-07-27 20:38] LABS: Glucose,Whole Blood 144 mg/dL (75-99)
[2021-07-27] MEDS: haloperidoL 5 MG TAB PO SCH (20:42)
[2021-07-27] MEDS: DIVALPROEX ER 500 MG TAB.ER.24H PO SCH (20:42)
[2021-07-27] MEDS: OLANZapine 10 MG TAB PO SCH (20:42)
[2021-07-27] MEDS: TAMSULOSIN 0.4 MG CAP.ER.24H PO SCH (20:42)
[2021-07-27] MEDS: ATORVASTATIN 20 MG TAB PO SCH (20:42)
[2021-07-27] MEDS: DIVALPROEX ER 250 MG TAB.ER.24H PO SCH (20:42)
[2021-07-27] MEDS: BENZTROPINE MESYLATE 1 MG TAB PO SCH (20:43)
[2021-07-28 07:15] LABS: Glucose,Whole Blood 179 mg/dL (75-99)
[2021-07-28] MEDS: ENOXAPARIN 30 MG/0.3 ML SYRINGE SQ SCH (08:17)
[2021-07-28] MEDS: INSULIN ASPART (NovoLOG) 100 UNIT/ML VIAL SQ SCH ×4 (08:18→21:18)
[2021-07-28] MEDS: CEPHALEXIN 250 MG CAP PO SCH ×3 (08:19→20:35)
[2021-07-28] MEDS: lamoTRIgine 100 MG TAB PO SCH ×2 (08:19→20:35)
[2021-07-28] MEDS: FUROSEMIDE 10 MG/ML 4 ML VIAL IV SCH (08:19)
[2021-07-28] MEDS: PANTOPRAZOLE 40 MG TABLET PO SCH (08:19)
[2021-07-28] MEDS: IPRATROPIUM-ALBUTEROL 3 ML NEB INHALATION SCH ×3 (08:19→20:40)
[2021-07-28] MEDS: NICOTINE 21MG/24HR PATCH TRANSDERM SCH (08:25)
[2021-07-28 11:22] LABS: Glucose,Whole Blood 151 mg/dL (75-99)
--- NOTE | 2021-07-28 14:22 | P.PN ---
Subjective Progress Note Date: 07/28/21 Follow-up for acute kidney injury. Urine output of 6L. difficulty emptying urine into the urinal today. Objective - Vital Signs Vital signs: Vital Signs Temp 97.9 F 07/28/21 07:21 Pulse 82 07/28/21 08:29 Resp 17 07/28/21 07:21 BP 107/71 07/28/21 07:21 Pulse Ox 97 07/28/21 07:21 Intake & Output 07/27/21 07/28/21 07/28/21 18:59 06:59 18:59 Intake Total 1000 Output Total 2600 3475 Balance -4342 -7254 Intake: Oral 1000 Output: Urine 2600 3475 Other: Voiding Method Indwelling Catheter # Bowel Movements 0 - Exam No acute distress S1-S2 heard Decreased breath sounds Edema - Labs CBC & Chem 7: 07/23/21 05:22 07/27/21 06:27 Labs: Abnormal Lab Results - Last 24 Hours (Table) 07/27/21 07/27/21 07/28/21 Range/Units 16:26 20:35 07:13 POC Glucose (mg/dL) 249 H 144 H 179 H (75-99) mg/dL 07/28/21 Range/Units 11:20 POC Glucose (mg/dL) 151 H (75-99) mg/dL Assessment and Plan Assessment: #1 acute kidney injury secondary to cardiorenal syndrome. So component of urinary retention. -Unknown baseline creatinine. -No hydronephrosis on renal ultrasound #2 volume overload with pulmonary edema better. #3 urinary retention status post Mccracken #4 diabetes. #5 polyuria Plan: #1 renal function stable. No new labs today. #2 with polyuria discontinue Lasix, check labs in the morning. #3 avoid nephrotoxic agents.
[2021-07-28 16:16] LABS: Glucose,Whole Blood 166 mg/dL (75-99)
--- NOTE | 2021-07-28 18:30 | P.PN ---
Progress Note - Text Progress Note Date: 07/28/21 Hospital course Patient is a 55-year-old male who was recently admitted with recent fall and lef t femur fracture and previous hospital also found to have an acute urinary tract infection and some apparent psychiatric issues and is being closely monitored. Orthopedics following as well. Patient underwent further x-rays of the left tibia and fibula showing a demonstration of minimally displaced lateral malleolus fracture with no evidence of proximal tibia fibular fractures. Patient is also found to be Covid positive elsewhere and currently testing negative. Patient continues with confusion today and is also having some pain of the left shoulder with some bruising noted. Will obtain left shoulder x-ray which is currently pending. Psychiatry following and making adjustments to medications and continue to follow. Patient continues on IV ceftriaxone while awaiting for cultures to finalized. 2-D echo was done showing moderate concentric left ventricular hypertrophy with overall LV systolic function being normal with an EF of 55-60% patient denies chest pain, shortness of breath, or palpitations. Patient is afebrile. July 24: Patient of the sleepy tired./Delirious. Dose of Haldol cutback by psychiatry. Oral intake good July 25: More awake today. Eating well. On IV Lasix per nephrology. Ativan has been changed to when necessary. July 26: Good oral intake. Far more vocal today. No change of medications per psychiatry. IV Lasix to continue per nephrology. Patient was orthopedics to come back and look at his left knee pain. July 27: Sitting up in bed. Comfortable. Doesn't like hospital food. Oral intake variable. July 28: Comfortable. On Keflex. IV Lasix discontinued. Active Medications Acetaminophen (Acetaminophen Tab 325 Mg Tab) 650 mg PO Q6HR PRN PRN Reason: Mild Pain or Fever > 100.5 Albuterol/Ipratropium (Ipratropium-Albuterol 3 Ml Neb) 3 ml INHALATION RT-TID [facility] Last Admin: 07/28/21 12:36 Dose: Not Given Documented by: Albuterol/Ipratropium (Ipratropium-Albuterol 3 Ml Neb) 3 ml INHALATION RT-TID PRN PRN Reason: Shortness Of Breath Or Wheezing Atorvastatin Calcium (Atorvastatin 20 Mg Tab) 20 mg PO HS [facility] Last Admin: 07/27/21 20:42 Dose: 20 mg Documented by: Benztropine Mesylate (Benztropine Mesylate 1 Mg Tab) 1 mg PO [facility] Last Admin: 07/27/21 20:43 Dose: 1 mg Documented by: Cephalexin (Cephalexin 250 Mg Cap) 250 mg PO TID [facility]; Protocol Last Admin: 07/28/21 16:59 Dose: 250 mg Documented by: Divalproex Sodium (Divalproex Er 250 Mg Tab.Er.24h) 250 mg PO [facility] Last Admin: 07/27/21 20:42 Dose: 250 mg Documented by: Divalproex Sodium (Divalproex Er 500 Mg Tab.Er.24h) 1,500 mg PO [facility] Last Admin: 07/27/21 20:42 Dose: 1,500 mg Documented by: Enoxaparin Sodium (Enoxaparin 30 Mg/0.3 Ml Syringe) 30 mg SQ DAILY [facility] Last Admin: 07/28/21 08:17 Dose: 30 mg Documented by: Haloperidol (Haloperidol 5 Mg Tab) 7.5 mg PO [facility] Last Admin: 07/27/21 20:42 Dose: 7.5 mg Documented by: Insulin Aspart (Insulin Aspart (Novolog) 100 Unit/Ml Vial) 0 unit SQ [facility]; Protocol Last Admin: 07/28/21 16:59 Dose: 2 unit Documented by: Lamotrigine (Lamotrigine 100 Mg Tab) 100 mg PO BID [facility] Last Admin: 07/28/21 08:19 Dose: 100 mg Documented by: Lorazepam (Lorazepam 2 Mg/Ml Inj) 1 mg IV Q6HR PRN PRN Reason: Anxiety Last Admin: 07/23/21 19:34 Dose: 1 mg Documented by: Lorazepam (Lorazepam 1 Mg Tab) 1 mg PO TID PRN PRN Reason: Agitation or Acute Anxiety Morphine Sulfate (Morphine Sulfate 4 Mg/Ml Syringe) 4 mg IV Q4HR PRN PRN Reason: Severe Pain Last Admin: 07/24/21 19:40 Dose: 4 mg Documented by: Naloxone HCl (Naloxone 0.4 Mg/Ml 1 Ml Vial) 0.2 mg IV Q2M PRN PRN Reason: Opioid Reversal Nicotine (Nicotine 21mg/24hr Patch) 1 patch TRANSDERM DAILY [facility] Last Admin: 07/28/21 08:25 Dose: Not Given Documented by: Olanzapine (Olanzapine 10 Mg Tab) 20 mg PO [facility] Last Admin: 07/27/21 20:42 Dose: 20 mg Documented by: Ondansetron HCl (Ondansetron 4 Mg/2 Ml Vial) 4 mg IVP Q8HR PRN PRN Reason: Nausea And Vomiting Pantoprazole Sodium (Pantoprazole 40 Mg Tablet) 40 mg PO AC-BRKFST [facility] Last Admin: 07/28/21 08:19 Dose: 40 mg Documented by: Tamsulosin HCl (Tamsulosin 0.4 Mg Cap.Er.24h) 0.4 mg PO PC-SUPPER [facility] Last Admin: 07/27/21 20:42 Dose: 0.4 mg Documented by: Physical examination: Vitals: 97.6, 80, 17, 111/77, 92% room air GENERAL APPEARANCE: Awake, reclining in bed, comfortable HEENT: Normal external appearance of nose and ear. Oral cavity normal EYES: Pupils equal. Conjunctiva mild icterus NECK: JVD not raised. Mass not palpable. RESPIRATORY: Respiratory effort normal. Lungs decreased breath sounds CARDIOVASCULAR: First and second sounds normal. No edema. ABDOMEN: Soft. Liver and spleen not palpable. No tenderness. No mass palpable. MUSCULAR skeletal: Left shoulder bruising PSYCHIATRY: Answering questions appropriately. A bit anxious INVESTIGATIONS, reviewed in the clinical context: July 27: Potassium 3.7 BUN 54 creatinine 2.65 July 25: Potassium 3.3 BUN 40 creatinine 2.76 White count 9.2 hemoglobin 11.6 platelets 21 potassium 4 creatinine 2.6 Assessment and plan: -Fall and possible left fibular fracture, most recent x-ray showing no evidence of proximal tibia fibular fractures -Left lateral malleolus fracture is noted on x-ray Weightbearing as tolerated with the boot -Acute kidney injury, nonoliguric. Mostly obstructive in the Mccracken catheter. Follow labs. Nephrology follow-up. Flomax. Suboptimal renal ultrasound -Psychiatry disorder: Possibly delirium better Being followed by psychiatry -Acute urinary tract infection with sepsis, present on admission Changed to Keflex COVID-19 positive, elsewhere, negative currently x2 -Chronic Congestive heart failure from diastolic dysfunction EF 50-60% -Acute metabolic encephalopathy/delirium possibly from infection: Better -Legal guardian Keflex. IV Lasix stopped. Continue other medications. Pending placement.-
[2021-07-28] MEDS: OLANZapine 10 MG TAB PO SCH (20:34)
[2021-07-28] MEDS: BENZTROPINE MESYLATE 1 MG TAB PO SCH (20:34)
[2021-07-28] MEDS: ACETAMINOPHEN TAB 325 MG TAB PO PRN (20:34)
[2021-07-28] MEDS: haloperidoL 5 MG TAB PO SCH (20:34)
[2021-07-28] MEDS: ATORVASTATIN 20 MG TAB PO SCH (20:34)
[2021-07-28] MEDS: TAMSULOSIN 0.4 MG CAP.ER.24H PO SCH (20:35)
[2021-07-28] MEDS: DIVALPROEX ER 500 MG TAB.ER.24H PO SCH (20:35)
[2021-07-28] MEDS: DIVALPROEX ER 250 MG TAB.ER.24H PO SCH (20:39)
[2021-07-28 21:11] LABS: Glucose,Whole Blood 248 mg/dL (75-99)
[2021-07-29 04:41] LABS: Glucose,Whole Blood 194 mg/dL (75-99)
[2021-07-29] MEDS: ACETAMINOPHEN TAB 325 MG TAB PO PRN (04:49)
[2021-07-29 06:34] LABS: African American GFR (CKD) 26 (>60 ml/min/1.73 sqM); Anion Gap 12 mmol/L; Blood Urea Nitrogen 68 mg/dL (9-20); Calcium 9.1 mg/dL (8.4-10.2); Carbon Dioxide 30 mmol/L (22-30); Chloride 96 mmol/L (98-107); Glucose 199 mg/dL (74-99); Non-African American GFR(CKD) 22 (>60 ml/min/1.73 sqM); Potassium 3.5 mmol/L (3.5-5.1); Sodium 138 mmol/L (137-145)
[2021-07-29 07:27] LABS: Glucose,Whole Blood 269 mg/dL (75-99)
[2021-07-29 08:34] VITALS: RESP 16
[2021-07-29] MEDS: IPRATROPIUM-ALBUTEROL 3 ML NEB INHALATION SCH ×2 (08:34→11:28)
[2021-07-29] MEDS: CEPHALEXIN 250 MG CAP PO SCH ×2 (08:36→15:52)
[2021-07-29] MEDS: INSULIN ASPART (NovoLOG) 100 UNIT/ML VIAL SQ SCH ×2 (08:36→11:52)
[2021-07-29] MEDS: NICOTINE 21MG/24HR PATCH TRANSDERM SCH ×2 (08:36→08:40)
[2021-07-29] MEDS: ENOXAPARIN 30 MG/0.3 ML SYRINGE SQ SCH (08:36)
[2021-07-29] MEDS: lamoTRIgine 100 MG TAB PO SCH (08:36)
[2021-07-29] MEDS: PANTOPRAZOLE 40 MG TABLET PO SCH (08:36)
[2021-07-29] MEDS ORDERED: POTASSIUM CHLORIDE ER 20 MEQ TAB.ER PO STA (09:34)
--- NOTE | 2021-07-29 09:34 | P.PN ---
Subjective Patient is seen in follow-up for acute kidney injury. Creatinine 2.99 today. Mccracken catheter removed. Has been voiding. Urine output over 2 L in the last 24 hours. Lasix stopped yesterday. Denies chest pain or shortness of breath. Currently on room air. Blood pressure stable. Vital signs are stable. General: Resting in bed. HEENT: Head exam is unremarkable. LUNGS: Breath sounds decreased. HEART: Rate and Rhythm are regular. ABDOMEN: Soft, no distention. EXTREMITITES: Trace edema. Objective - Vital Signs Vital signs: Vital Signs Temp 98.1 F 07/29/21 08:33 Pulse 89 07/29/21 08:33 Resp 16 07/29/21 08:33 BP 125/79 07/29/21 08:33 Pulse Ox 95 07/29/21 08:33 Intake & Output 07/28/21 07/29/21 07/29/21 18:59 06:59 18:59 Intake Total 750 118 Output Total 1825 1200 Balance -1825 -450 118 Intake: Oral 750 118 Output: Urine 1825 1200 Other: # Voids 2 1 - Labs CBC & Chem 7: 07/23/21 05:22 07/29/21 05:16 Labs: Abnormal Lab Results - Last 24 Hours (Table) 07/28/21 07/28/21 07/28/21 Range/Units 11:20 16:14 21:10 Chloride (98-107) mmol/L BUN (9-20) mg/dL Creatinine (0.66-1.25) mg/dL Glucose (74-99) mg/dL POC Glucose (mg/dL) 151 H 166 H 248 H (75-99) mg/dL 07/29/21 07/29/21 07/29/21 Range/Units 04:39 05:16 07:26 Chloride 96 L (98-107) mmol/L BUN 68 H (9-20) mg/dL Creatinine 2.99 H (0.66-1.25) mg/dL Glucose 199 H (74-99) mg/dL POC Glucose (mg/dL) 194 H 269 H (75-99) mg/dL Assessment and Plan Plan: Assessment: 1. Acute kidney injury secondary to ATN secondary to cardiorenal syndrome. A lso component of urinary retention. Creatinine 2.99 today. Unknown baseline renal function. No hydronephrosis noted on kidney ultrasound. UA benign. 2. Volume overload with pulmonary edema. Improved. On room air. 3. Acute on chronic diastolic CHF. 4. Urinary retention status post Mccracken catheter placement. On Flomax. 5. Hypokalemia from diuresis. Replaced. 6. Fall with left fibular fracture. Plan: Continue to hold diuretics. Replace potassium. Continue to monitor renal function and urine output.
[2021-07-29] MEDS ORDERED: LINAGLIPTIN 5 MG TABLET PO SCH (10:15)
[2021-07-29 11:48] LABS: Glucose,Whole Blood 126 mg/dL (75-99)
--- NOTE | 2021-07-29 14:03 | P.DS ---
Providers Date of admission: 07/21/21 21:52 Expected date of discharge: 07/29/21 Attending physician: Selvin Sawant Consults: 07/21/21 21:45 Consult Physician Routine Consulting Provider: Meera Mclean Consult Reason/Comments: Distal left fibula fracture Do you want consulting provider notified?: Yes Consult Physician Urgent Consulting Provider: Vic Colmenares Consult Reason/Comments: Altered mental status Do you want consulting provider notified?: Already Contacted 07/23/21 14:13 Consult Physician Urgent Consulting Provider: Jennyfer Dubon Consult Reason/Comments: FIONA Do you want consulting provider notified?: Yes Primary care physician: Elizabeth Hospital Course: Hospital course Patient is a 55-year-old male who was recently admitted with recent fall and left femur fracture and previous hospital also found to have an acute urinary tract infection and some apparent psychiatric issues and is being closely monitored. Orthopedics following as well. Patient underwent further x-rays of the left tibia and fibula showing a demonstration of minimally displaced lateral malleolus fracture with no evidence of proximal tibia fibular fractures. Patient is also found to be Covid positive elsewhere and currently testing negative. Patient continues with confusion today and is also having some pain of the left shoulder with some bruising noted. Will obtain left shoulder x-ray which is currently pending. Psychiatry following and making adjustments to medications and continue to follow. Patient continues on IV ceftriaxone while awaiting for cultures to finalized. 2-D echo was done showing moderate concentric left ventricular hypertrophy with overall LV systolic function being normal with an EF of 55-60% patient denies chest pain, shortness of breath, or palpitations. Patient is afebrile. July 24: Patient of the sleepy tired./Delirious. Dose of Haldol cutback by psychiatry. Oral intake good July 25: More awake today. Eating well. On IV Lasix per nephrology. Ativan has been changed to when necessary. July 26: Good oral intake. Far more vocal today. No change of medications per psychiatry. IV Lasix to continue per nephrology. Patient was orthopedics to come back and look at his left knee pain. July 27: Sitting up in bed. Comfortable. Doesn't like hospital food. Oral intake variable. July 28: Comfortable. On Keflex. IV Lasix discontinued. July 29: Comfortable. No new issues. Spoke to the pediatric social worker. Patient is accepting place. Discussed with patient. Discussion and discharge planning more than 35 minutes Physical examination: Vitals: 98.1, 89, 16, 125/79, 95% room air GENERAL APPEARANCE: Awake, reclining in bed, comfortable HEENT: Normal external appearance of nose and ear. Oral cavity normal EYES: Pupils equal. Conjunctiva mild icterus NECK: JVD not raised. Mass not palpable. RESPIRATORY: Respiratory effort normal. Lungs decreased breath sounds CARDIOVASCULAR: First and second sounds normal. No edema. ABDOMEN: Soft. Liver and spleen not palpable. No tenderness. No mass palpable. MUSCULAR skeletal: Left shoulder bruising PSYCHIATRY: Answering questions appropriately. A bit anxious INVESTIGATIONS, reviewed in the clinical context: July 21: Potassium 3.5 creatinine 2.99 July 27: Potassium 3.7 BUN 54 creatinine 2.65 July 25: Potassium 3.3 BUN 40 creatinine 2.76 White count 9.2 hemoglobin 11.6 platelets 21 potassium 4 creatinine 2.6 Assessment and plan: -Fall and possible left fibular fracture, most recent x-ray showing no evidence of proximal tibia fibular fractures -Left lateral malleolus fracture is noted on x-ray Weightbearing as tolerated with the boot -Acute kidney injury, nonoliguric. Mostly obstructive in the Mccracken catheter. Follow labs. Nephrology follow-up. Flomax. Suboptimal renal ultrasound -Psychiatry disorder: Possibly delirium better Being followed by psychiatry -Acute urinary tract infection with sepsis, present on admission Changed to Keflex COVID-19 positive, elsewhere, negative currently x2 -Chronic Congestive heart failure from diastolic dysfunction EF 50-60% -Acute metabolic encephalopathy/delirium possibly from infection: Better -Legal guardian Disposition: [facility] Plan - Discharge Summary Discharge Rx Participant: No New Discharge Prescriptions: New Ipratropium-Albuterol Nebulize [Duoneb 0.5 mg-3 mg/3 ml Soln] 3 ml INHALATION RT-TID ml Tamsulosin [Flomax] 0.4 mg PO PC-SUPPER Nicotine 21Mg/24Hr Patch [Habitrol] 1 patch TRANSDERM DAILY patch INSULIN ASPART (NovoLOG) [NovoLOG (formulary)] 0 unit SQ ACHS ml Linagliptin [Tradjenta] 5 mg PO DAILY #1 tab Famotidine [Pepcid] 20 mg PO BID #1 tablet Cephalexin [Keflex] 250 mg PO TID #21 cap Continue Divalproex ER [Depakote ER] 1,500 mg PO HS Divalproex ER [Depakote ER] 250 mg PO HS Benztropine Mesylate 1 mg PO HS Atorvastatin [Lipitor] 20 mg PO HS OLANZapine [ZyPREXA] 20 mg PO HS Changed LORazepam [Ativan] 1 mg PO TID PRN #9 tab PRN Reason: Anxiety haloperidoL [Haldol] 7.5 mg PO HS #6 tab lamoTRIgine [LaMICtal] 100 mg PO BID #0 Discontinued lamoTRIgine [LaMICtal] 200 mg PO DAILY haloperidoL [Haldol] 5 mg PO DAILY Discharge Medication List Atorvastatin [Lipitor] 20 mg PO HS 07/21/21 [History] Benztropine Mesylate 1 mg PO HS 07/21/21 [History] Divalproex ER [Depakote ER] 1,500 mg PO HS 07/21/21 [History] Divalproex ER [Depakote ER] 250 mg PO HS 07/21/21 [History] OLANZapine [ZyPREXA] 20 mg PO HS 07/21/21 [History] Famotidine [Pepcid] 20 mg PO BID #1 tablet 07/25/21 [Rx] Ipratropium-Albuterol Nebulize [Duoneb 0.5 mg-3 mg/3 ml Soln] 3 ml INHALATION RT-TID ml 07/25/21 [Rx] LORazepam [Ativan] 1 mg PO TID PRN #9 tab 07/25/21 [Rx] Nicotine 21Mg/24Hr Patch [Habitrol] 1 patch TRANSDERM DAILY patch 07/25/21 [Rx] Tamsulosin [Flomax] 0.4 mg PO PC-SUPPER 07/25/21 [Rx] haloperidoL [Haldol] 7.5 mg PO HS #6 tab 07/25/21 [Rx] lamoTRIgine [LaMICtal] 100 mg PO BID #0 07/25/21 [Rx] Cephalexin [Keflex] 250 mg PO TID #21 cap 07/29/21 [Rx] INSULIN ASPART (NovoLOG) [NovoLOG (formulary)] 0 unit SQ ACHS ml 07/29/21 [Rx] Linagliptin [Tradjenta] 5 mg PO DAILY #1 tab 07/29/21 [Rx] Follow up Appointment(s)/Referral(s): psychiatristdr [Other] - 1 Week Tano Winter, [NON-STAFF] - As Needed Meera Mclean DO [Doctor of Osteopathic Medicine] - 08/19/21 9:30 am Jimmie Stephens NPC [REFERRING] - 07/30/21 2:30 pm Activity/Diet/Wound Care/Special Instructions: Weightbearing as tolerated in boot. May remove boot for bathing.
[2021-07-29 15:13] VITALS: BP 110/77; PULSE 86; TEMP 98
[2021-07-29 16:58] LABS: Glucose,Whole Blood 193 mg/dL (75-99)
--- NOTE | 2021-07-30 08:49 | CDI ---
Documentation Clarification Form Date: 07/24/2021 08:07:00 AM From: Yoana Agudelo CCS, CCDS Admit Date: 07/21/2021 09:52:00 PM Patient Name: Matt Garg Visit Number: [id number] Discharge Date: 07/29/2021 05:15:00 PM ATTENTION: The Clinical Documentation Specialists (CDI) and [facility] Coding Staff appreciate your assistance in clarifying documentation. Please respond to the clarification below the line at the bottom and electronically sign. The CDI & [facility] Coding staff will review the response and follow-up if needed. Please note: Queries are made part of the Legal Health Record. If you have any questions, please contact the author of this message via ITS. Dr. Cordell Taveras Unspecified anemia is documented in the 07/22 & 07/23 Attending Physician Progress Notes. Additional specificity regarding the Type & Acuity of Anemia is requested. History/Risk Factors per the 07/22 H/P: Hyperlipidemia, Psychiatric problems, lives in an [place]WAY. Chronic Renal Failure is documented in the ED Note. Clinical indicators: Presented to the ED on 07/21 via EMS as a transfer from [facility] after multiple falls, sustained a nondisplaced distal fibular fracture on the left. Found to be positive COVID 19 and have a UTI, Altered mental status. Complained of left lower leg area. Hemoglobin 07/21: 11.0. 07/22: 10.7. 07/23: 11.6 Hematocrit 07/21: 34.8. 07/22: 34.4. 07/23: 37.0 Treatment 07/21: Telemetry, Neurological Assessment, Mccracken Catheter, Pulse Oximetry q/shift, IV Ativan 2 mg x1, IV Ativan 1 mg q6H/prn, IM Haldol 5 mg x1, IV Morphine 4 mg q4H/prn, IV Rocephin 100 mls/hr q24H, Lovenox 40 mg sq Daily, IV Protonix 40 mg Daily, INH Duoneb TID/prn, IV Lasix 40 mg q12H Please clarify the type and acuity of anemia: [ ] Chronic blood loss anemia [ ] Anemia of chronic kidney disease [ ] Anemia of other chronic condition [ ] Other type of Anemia, please specify: [ ] Unable to determine (Template Last Revised: July 2020) not my documentation MTDD
== END 2021-07-29 17:15 | DRG 871 ==
LOC: EC 19:42 → EEVIPCON 21:52 → 4SSUR 21:52
PROVIDERS: ADMIT Hospitalist; ATTEND Hospitalist
DX: A41.9 Sepsis, unspecified organism (principal); G93.41 Metabolic encephalopathy; I50.33 Acute on chronic diastolic (congestive) heart failure; N17.0 Acute kidney failure with tubular necrosis; I13.0 Hypertensive heart and chronic kidney disease with heart failure and stage 1 through stage 4 chronic kidney disease, or unspecified chronic kidney disease; N39.0 Urinary tract infection, site not specified; D63.1 Anemia in chronic kidney disease; E11.22 Type 2 diabetes mellitus with diabetic chronic kidney disease; E78.5 Hyperlipidemia, unspecified; E87.6 Hypokalemia; W18.30XA Fall on same level, unspecified, initial encounter; F17.210 Nicotine dependence, cigarettes, uncomplicated; F31.9 Bipolar disorder, unspecified; F41.9 Anxiety disorder, unspecified; G47.30 Sleep apnea, unspecified; N18.9 Chronic kidney disease, unspecified; R29.6 Repeated falls; S82.62XA Displaced fracture of lateral malleolus of left fibula, initial encounter for closed fracture; Z20.822 Contact with and (suspected) exposure to COVID-19; Z79.899 Other long term (current) drug therapy; Z60.2 Problems related to living alone
CPT/HCPCS: 36415; 71045; 76770; 80048; 80053; 80164; 80175; 81001; 82140; 82553; 82607; 82746; 83036; 83735; 84100; 84443; 84484; 85025; 87635; 93005; 93306; 94640; 94760; 96374; 99285

== ENCOUNTER → 2022-12-10 | Outpatient (CLI) | payer MEDICARE, OTHER ==
--- NOTE | 2022-12-10 22:38 | CT ---
EXAMINATION TYPE: CT abdomen wo con DATE OF EXAM: 12/10/2022 COMPARISON: Ultrasound 07/25/2021 INDICATION: RT SIDED RENAL MASS. DLP: 875.30 mGycm, Automated exposure control for dose reduction was used. CONTRAST: 0 mL of Isovue 300. Study performed without Oral Contrast TECHNIQUE: Axial images were obtained from above the diaphragm to the pubic rami in the axial plane a t 5 mm thick sections. Reconstructed images are reviewed on the computer in the coronal plane. FINDINGS: Limited CT sections are obtained the lung bases. The lung bases are clear. CT ABDOMEN: Liver: Normal Spleen: Normal Pancreas: Normal Adrenal glands: The adrenal glands are normal. Gallbladder: Normal Kidneys: No masses are evident. Patient's right-sided renal mass is not identified. No hydronephrosis is present. There may be hepatic cyst extending from the left kidney. Note is made of punctate no nobstructing renal stones inferior pole bilateral kidneys. On the right this measures 0.2 cm. On the left this measures 0.3 cm. Aorta: Vascular calcification is within the aorta. Inferior vena cava: Normal. Loops of bowel within the abdomen and pelvis are normal. Fecal debris is through the colon. There are loops of bowel which are incompletely distended or lack oral contrast limiting their evaluation. Appendix: Normal as visualized. This is incompletely evaluated extending out of the [id number]. IMPRESSIONS: 1. No renal masses identified on this noncontrast CT abdomen. Couple of small left renal cyst may be present and nonobstructing punctate renal stones are bilateral inferior poles of the kidneys.
== END | disposition home or self-care (01) ==
LOC: RADCTMAIN 12:42
PROVIDERS: ATTEND Urology
DX: D41.01 Neoplasm of uncertain behavior of right kidney (principal); N20.0 Calculus of kidney; N28.89 Other specified disorders of kidney and ureter
CPT/HCPCS: 74150